=== PATIENT | male | born 1985 | race Caucasian/White ===

== ENCOUNTER 2017-11-19 10:40 | Outpatient (RCR) | payer OTHER, SELFPAY | END 2017-11-25 23:59 | LOC: DC 10:40 | PROVIDERS: Family Provider Family Medicine; PCP Family Medicine; Visit Provider Family Medicine | DX: E11.9 Type 2 diabetes mellitus without complications (principal); Z71.3 Dietary counseling and surveillance | CPT/HCPCS: G0108 ==

== ENCOUNTER → 2018-01-19 12:16 | Outpatient (CLI) | payer OTHER, SELFPAY ==
[2018-01-19 13:20] LABS: Amphetamine Urine VISTA NEGATIVE (<1000 ng/mL); Barbiturate Urine VISTA NEGATIVE (< 200 ng/mL); Benzodiazepine Urine VISTA POSITIVE (< 200 ng/mL); Cocaine Urine VISTA NEGATIVE (< 300 ng/mL); Ecstacy Urine VISTA NEGATIVE (< 500 ng/mL); Methadone Urine VISTA NEGATIVE (< 300 ng/mL); PCP Urine VISTA NEGATIVE (< 25 ng/mL); THC Urine VISTA NEGATIVE (< 50 ng/mL); Vista UDS pH Range 5
== END ==
PROVIDERS: Family Provider Family Medicine; PCP Family Medicine; Visit Provider Anesthesiology Pain Medicine
DX: F11.20 Opioid dependence, uncomplicated (principal)
CPT/HCPCS: 80307

== ENCOUNTER → 2018-07-01 13:25 | Outpatient (CLI) | payer OTHER, SELFPAY ==
[2018-07-01 14:15] LABS: Amphetamine Urine VISTA NEGATIVE (<1000 ng/mL); Barbiturate Urine VISTA NEGATIVE (< 200 ng/mL); Benzodiazepine Urine VISTA POSITIVE (< 200 ng/mL); Cocaine Urine VISTA NEGATIVE (< 300 ng/mL); Ecstacy Urine VISTA NEGATIVE (< 500 ng/mL); Methadone Urine VISTA NEGATIVE (< 300 ng/mL); PCP Urine VISTA NEGATIVE (< 25 ng/mL); THC Urine VISTA POSITIVE (< 50 ng/mL); Vista UDS pH Range 6
== END ==
PROVIDERS: Family Provider Family Medicine; PCP Family Medicine; Referring Provider Anesthesiology Pain Medicine; Visit Provider Anesthesiology Pain Medicine
DX: S48.11 Complete traumatic amputation at level between shoulder and elbow (principal); S49.91XA Unspecified injury of right shoulder and upper arm, initial encounter
CPT/HCPCS: 80307

== ENCOUNTER 2018-12-25 23:31 | Emergency (ER) | payer OTHER, SELFPAY ==
[2018-08-14 09:19] VITALS: BMI 32.2
[2018-12-25 23:31] VITALS: BP 145/81; PULSE 99; RESP 22; TEMP 36.4; O2SAT 97; BMI 30.7
--- NOTE | 2018-12-26 00:38 | CT_ITS ---
STUDY: CTA OF THE ABDOMINAL AORTA AND BILATERAL LOWER EXTREMITIES REASON FOR EXAM: Male, 33 years old. . RADIATION DOSAGE (If Supplied By Facility): CTDIvol = ( 8.39 ) mGy, DLP = ( 2123.13 ) mGycm TECHNIQUE: Axial CT angiography multi-detector data acquisition was obtained from the to the following intravenous administration of 100ML IV Isovue 370. Axial images and MIP images were reconstructed from the axial data set. Post-processing of the angiographic images was performed, with multiplanar reformation and 3D reconstruction. Individualized dose optimization techniques were used for this CT. TECHNICAL QUALITY: Good COMPARISON: None. Descriptors of Narrowing: None (0%) Mild (< 50%) Moderate (50-70%) Severe (70-90%) Subtotal/Total Occlusion (90-100%) Non-Evaluable (technically non-diagnostic FINDINGS: Angiographic findings: Abdominal aorta: No demonstrated narrowing. Celiac and superior mesenteric arteries: No demonstrated narrowing. Inferior mesenteric artery: No demonstrated narrowing. Right renal artery(arteries): No demonstrated narrowing. Left renal artery(arteries): No demonstrated narrowing. Right common iliac artery: No demonstrated narrowing. Right external iliac artery: No demonstrated narrowing. Right internal iliac artery: No demonstrated narrowing. Left common iliac artery: No demonstrated narrowing. Left external iliac artery: No demonstrated narrowing. Left internal iliac artery: No demonstrated narrowing. RIGHT LOWER EXTREMITY Right common femoral artery: No demonstrated narrowing. Right profundus femoris: No demonstrated narrowing. Right superficial femoral: No demonstrated narrowing. Right popliteal artery: No demonstrated narrowing. Right tibioperoneal trunk: No demonstrated narrowing. Right anterior tibial artery: No demonstrated narrowing. Right posterior tibial artery: No demonstrated narrowing. Right peroneal artery: No demonstrated narrowing. LEFT LOWER EXTREMITY Left common femoral artery: No demonstrated narrowing. Left profundus femoris: No demonstrated narrowing. Left superficial femoral: No demonstrated narrowing. Left popliteal artery: No demonstrated narrowing. Left tibioperoneal trunk: No demonstrated narrowing. Left anterior tibial artery: No demonstrated narrowing. Left posterior tibial artery: No demonstrated narrowing. Left peroneal artery: No demonstrated narrowing. Nonangiographic findings: Diffuse homogeneous hypoattenuation of the liver parenchyma. Normal gallbladder. Normal spleen. Normal pancreas. Normal adrenal glands. Normal kidneys.. Normal stomach. Normal small bowel. Mild diverticular disease of the sigmoid colon without localized inflammation. Normal appendix. No free air or free fluid. No significant mesenteric or retroperitoneal adenopathy. IMPRESSION: 1. Normal abdominal aorta and bilateral lower extremity run-off without a hemodynamically significant stenosis. 2. Fatty infiltration of the liver. 3. Sigmoid colonic diverticulosis. Electronically Signed: Ramón Fan MD at 2:12 EDT Tel , Service support , STUDY: CTA CHEST REASON FOR EXAM: Male, 33 years old. Low back pain and chest pain RADIATION DOSAGE (If Supplied By Facility): CTDIvol = ( 8.39 ) mGy, DLP = ( 2123.13 ) mGycm TECHNIQUE: The examination was performed with the intravenous administration of 100ML IV Isovue 370. Post-processing of the angiographic images was performed, with multiplanar reformation and 3D reconstruction. Individualized dose optimization techniques were used for this CT. COMPARISON: None. FINDINGS: Normal enhancement of the main pulmonary artery and right and left pulmonary arteries. Normal enhancement of the bilateral peripheral pulmonary arteries. There is no demonstrated pulmonary embolism. Normal thoracic aorta and visualized great vessels. There is no demonstrated aortic dissection. Normal heart and pericardium. Normal mediastinum. Normal hilar regions. Normal visualized trachea and bronchi. The lungs are well expanded. Mild bilateral dependent atelectasis versus scar formation. Mild to moderate diffuse emphysematous change of the lungs. No pleural effusion or pneumothorax. Normal chest wall structures. Mild to moderate multilevel degenerative change of the spine. CT/CTA Chest W/WO Contrast IMPRESSION: 1. No evidence of acute pulmonary embolism or acute aortic pathology. 2. Mild emphysematous change with bilateral lung base atelectasis versus scar formation. Electronically Signed: Ramón Fan MD at 2:15 EDT Tel , Service support ,
--- NOTE | 2018-12-26 00:38 | CT_ITS ---
STUDY: CTA OF THE ABDOMINAL AORTA AND BILATERAL LOWER EXTREMITIES REASON FOR EXAM: Male, 33 years old. . RADIATION DOSAGE (If Supplied By Facility): CTDIvol = ( 8.39 ) mGy, DLP = ( 2123.13 ) mGycm TECHNIQUE: Axial CT angiography multi-detector data acquisition was obtained from the to the following intravenous administration of 100ML IV Isovue 370. Axial images and MIP images were reconstructed from the axial data set. Post-processing of the angiographic images was performed, with multiplanar reformation and 3D reconstruction. Individualized dose optimization techniques were used for this CT. TECHNICAL QUALITY: Good COMPARISON: None. Descriptors of Narrowing: None (0%) Mild (< 50%) Moderate (50-70%) Severe (70-90%) Subtotal/Total Occlusion (90-100%) Non-Evaluable (technically non-diagnostic FINDINGS: Angiographic findings: Abdominal aorta: No demonstrated narrowing. Celiac and superior mesenteric arteries: No demonstrated narrowing. Inferior mesenteric artery: No demonstrated narrowing. Right renal artery(arteries): No demonstrated narrowing. Left renal artery(arteries): No demonstrated narrowing. Right common iliac artery: No demonstrated narrowing. Right external iliac artery: No demonstrated narrowing. Right internal iliac artery: No demonstrated narrowing. Left common iliac artery: No demonstrated narrowing. Left external iliac artery: No demonstrated narrowing. Left internal iliac artery: No demonstrated narrowing. RIGHT LOWER EXTREMITY Right common femoral artery: No demonstrated narrowing. Right profundus femoris: No demonstrated narrowing. Right superficial femoral: No demonstrated narrowing. Right popliteal artery: No demonstrated narrowing. Right tibioperoneal trunk: No demonstrated narrowing. Right anterior tibial artery: No demonstrated narrowing. Right posterior tibial artery: No demonstrated narrowing. Right peroneal artery: No demonstrated narrowing. LEFT LOWER EXTREMITY Left common femoral artery: No demonstrated narrowing. Left profundus femoris: No demonstrated narrowing. Left superficial femoral: No demonstrated narrowing. Left popliteal artery: No demonstrated narrowing. Left tibioperoneal trunk: No demonstrated narrowing. Left anterior tibial artery: No demonstrated narrowing. Left posterior tibial artery: No demonstrated narrowing. Left peroneal artery: No demonstrated narrowing. Nonangiographic findings: Diffuse homogeneous hypoattenuation of the liver parenchyma. Normal gallbladder. Normal spleen. Normal pancreas. Normal adrenal glands. Normal kidneys.. Normal stomach. Normal small bowel. Mild diverticular disease of the sigmoid colon without localized inflammation. Normal appendix. No free air or free fluid. No significant mesenteric or retroperitoneal adenopathy. IMPRESSION: 1. Normal abdominal aorta and bilateral lower extremity run-off without a hemodynamically significant stenosis. 2. Fatty infiltration of the liver. 3. Sigmoid colonic diverticulosis. Electronically Signed: Ramón Fan MD at 2:12 EDT Tel , Service support , STUDY: CTA CHEST REASON FOR EXAM: Male, 33 years old. Low back pain and chest pain RADIATION DOSAGE (If Supplied By Facility): CTDIvol = ( 8.39 ) mGy, DLP = ( 2123.13 ) mGycm TECHNIQUE: The examination was performed with the intravenous administration of 100ML IV Isovue 370. Post-processing of the angiographic images was performed, with multiplanar reformation and 3D reconstruction. Individualized dose optimization techniques were used for this CT. COMPARISON: None. FINDINGS: Normal enhancement of the main pulmonary artery and right and left pulmonary arteries. Normal enhancement of the bilateral peripheral pulmonary arteries. There is no demonstrated pulmonary embolism. Normal thoracic aorta and visualized great vessels. There is no demonstrated aortic dissection. Normal heart and pericardium. Normal mediastinum. Normal hilar regions. Normal visualized trachea and bronchi. The lungs are well expanded. Mild bilateral dependent atelectasis versus scar formation. Mild to moderate diffuse emphysematous change of the lungs. No pleural effusion or pneumothorax. Normal chest wall structures. Mild to moderate multilevel degenerative change of the spine. CT/CTA Abd w/Runoff W/WO Contrast IMPRESSION: 1. No evidence of acute pulmonary embolism or acute aortic pathology. 2. Mild emphysematous change with bilateral lung base atelectasis versus scar formation. Electronically Signed: Ramón Fan MD at 2:15 EDT Tel , Service support ,
[2018-12-26] MEDS: Ondansetron 4 MG/2 ML Vial IV (00:53)
[2018-12-26] MEDS: Morphine 4 MG/ML Syringe IV (00:53)
[2018-12-26 00:59] LABS: Absolute Lymphocyte Count 2.03 X10^3/ul (0.83-4.51); Basophil# 0.01 X10^3/uL; Basophil% 0.1 % (0-1); Eosinophil# 0.26 X10^3/uL; Eosinophils% 3.8 % (0-5); Hematocrit 41.4 % (40-54); Hemoglobin 14.9 g/dl (13.0-16.5); Lymphocyte # 2.03 X10^3/ul (4.0); Lymphocyte % 29.5 % (19-41); Mean Corpuscular Hgb 29.5 pg (27.0-32.0); Mean Platelet Vol. 11.2 fl (6.2-12.0); Monocyte# 0.55 X10^3/uL; Neutrophil % 58.3 % (47-70); Platelet Count 200 K/mm3 (150-450); RBC Distribution Width SD 37.9 fl (35.1-43.9); Red Blood Count 5.05 M/mm3 (4.6-6.2); White Blood Count 6.9 K/mm3 (4.4-11.0)
[2018-12-26 01:00] LABS: POSITIVE COUNT NO; POSITIVE DIFFERENTIAL NO; POSITIVE MORPHOLOGY NO
[2018-12-26 01:13] LABS: Bacteria 0 SEEN /hpf (None Seen); Mucous, Urine 0 SEEN /hpf (<or=2+); Red Blood Cells-Urine 0 SEEN /hpf (0-5); White Blood Cells 0 SEEN /hpf (0-5)
[2018-12-26 01:14] LABS: Color, Urine Straw (Yellow); Glucose, Dipstick 1000 mg/dl (Normal); Ketone-Dipstick 5 mg/dl (Negative); Leukocyte Esterase-Dipstick Negative /ul (Negative); Nitrite-Dipstick Negative (Negative); Occult Blood-Urine Negative /ul (Negative); Protein-Dipstick Negative (Negative); Specific Gravity, Urine 1.015 (1.002-1.030); Urine Bilirubin Dipstick Negative (Negative); Urine Clarity Clear (Clear); Urine Urobilinogen Normal (Normal); Urine pH 6.5 (5.0 - 8.0)
[2018-12-26 01:14] LABS: Anion Gap 5 (5-15); BUN 10 mg/dL (7-18); BUN/Creat Ratio 10.9 RATIO (10-20); Calcium,Total 7.6 mg/dL (8.5-10.1); Chloride 102 mmol/L (98-107); Creatinine, Serum 0.91 mg/dL (0.70-1.30); EST Glomerular Filtration Rate 101 mL/min (>60); Est Glom Filt Rate - Afr Amer 122 mL/min (>60); Estimated Creatinine Clearance 121.82 ml/min; Glucose 400 mg/dL (74-106); Potassium 3.9 mmol/L (3.5-5.1); Sodium Level 134 mmol/L (136-145)
[2018-12-26 01:20] LABS: Squamous Epithelial Cells - UA 0-5 SEEN /hpf (0-5)
[2018-12-26 01:28] LABS: CPK Total, Creatine Kinase 63 U/L (39-308)
[2018-12-26 02:07] VITALS: BP 127/78; PULSE 67; RESP 16; O2SAT 97
--- NOTE | 2018-12-26 02:37 | ED.DCSUM_ITS ---
- ER Visit Summary Date of Service: 12/26/18 Chief Complaint: Back pain and leg pain History of Present Illness: The patient is a 33 M who presents with back pain. He has a history of prior back pain but never this severe. 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 He has had increased lower back pain since that time particularly on the left. He complains of aching pain radiating into his legs especially on the left. He also reports numbness and tingling. He also reports lower abdominal pain on both sides but more pronounced on the left. No fever chest pain shortness of breath cough. He is diabetic. 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 Emergency Department Course and Treatment: Afebrile vitals unremarkable Moist mucous membranes Heart regular rate and rhythm Lungs are clear Abdomen soft nondistended he has lower abdominal tenderness without guarding without rebound He has bilateral paraspinal lumbar tenderness more so on the left Extremities no edema no calf tenderness I was unable to easily palpate dorsalis pedis pulses he has positive Doppler flow bilaterally however this is strong and triphasic on the right and he only has weak Doppler signal on the left he does have brisk capillary refill normal sensation light touch 5 out of 5 dorsiflexion, plantarflexion, extensor hallucis longus Tests: CBC BMP notable only for glucose 400. Urinalysis normal. CPK normal. CTA of the chest shows no acute pathology. CTA of the abdomen with runoff shows normal aorta and lower extremity runoff. There is mild sigmoid diverticulosis no other acute abdominal process. ED Course: Given patient's report of back pain abdominal pain leg pain and pulse discrepancy this raise concern for aortic dissection. Therefore he was sent for CTAs of the chest abdomen and runoff the of the extremities. No vascular etiology was found. Therefore this is most likely lumbosacral strain and lumbar radiculopathy. He was treated with IV morphine and Zofran here. He is Santhosh on opiates at home. We will add on Mobic. He understands to return for new or worsening symptoms and otherwise to follow-up with his pain management physician. Patient discharged. Treatment Plan: [] Disposition: Discharge Impression: Lumbar sacral strain Lumbar radiculopathy Abdominal pain This note was generated with [employer] dictation software. It may contain incorrect words, spelling, and punctuation that were not noted in review of the chart prior to signing ED Disposition - Plan for ED Patient: Referrals: Abdoulaye Sweet MD [Primary Care Provider] -
--- NOTE | 2018-12-26 03:18 | ED.DEP ---
ED Disposition - Plan for ED Patient: Instructions: ED Sciatica, ED Sprain Strain Lumbar Prescriptions: Meloxicam [Mobic] 15 mg PO DAILY #10 tab Referrals: Abdoulaye Sweet MD [Primary Care Provider] -
[2018-12-26 03:24] VITALS: BP 126/83; PULSE 78; RESP 15; O2SAT 95
== END 2018-12-26 03:25 | disposition home or self-care (01) ==
PROVIDERS: Emergency Provider Emergency Medicine; Family Provider Family Medicine; PCP Family Medicine
DX: S39.012A Strain of muscle, fascia and tendon of lower back, initial encounter (principal); X50.1XXA Overexertion from prolonged static or awkward postures, initial encounter; Y93.89 Activity, other specified; Y92.9 Unspecified place or not applicable; M54.16 Radiculopathy, lumbar region; R10.30 Lower abdominal pain, unspecified; E11.9 Type 2 diabetes mellitus without complications; Z89.202 Acquired absence of left upper limb, unspecified level; Z79.891 Long term (current) use of opiate analgesic; Z79.899 Other long term (current) drug therapy
CPT/HCPCS: 71275; 75635; 80048; 81001; 82550; 85025; 96374; 96375; 99283; Q9967; A4216; J2405

== ENCOUNTER → 2019-01-12 15:28 | Outpatient (CLI) | payer OTHER, SELFPAY ==
[2018-12-25 23:31] VITALS: BMI 30.7
[2019-01-12 17:54] LABS: COTININE Drug Screen Negative (<200 ng/mL)
== END ==
PROVIDERS: Family Provider Family Medicine; PCP Family Medicine
DX: T87.32 Neuroma of amputation stump, left upper extremity (principal); Z72.0 Tobacco use
CPT/HCPCS: 80307

== ENCOUNTER 2019-02-10 13:58 | Emergency (ER) | payer OTHER, SELFPAY ==
[2019-02-10 14:00] VITALS: BP 127/74; PULSE 99; RESP 17; TEMP 36.4; O2SAT 97; BMI 29.2
--- NOTE | 2019-02-10 14:35 | ED.VISSUMM ---
- ER Visit Summary Date of Service: 02/10/19 Chief Complaint: Depression. History of Present Illness: The patient is a 33 M who is depressed and suicidal. 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 He is in quite a bit of pain and cannot manage it. He was seeing [facility], threatened to kill himself in multiple ways. Clean. Physical Examinat Tearful anxious Moist mucous membranes, no obvious facial deformity No C-spine tenderness supple neck. Regular rate and rhythm without any obvious murmurs Clear lungs bilaterally speaking in full sentences without any obvious respiratory distress Abdomen soft and nontender no guarding or rebound Left above the elbow amputation site is clean dry and intact. Skin does not show any obvious rashes or lesions, no trauma. Alert oriented ?3 with no gross focal deficit Emergency Department Course and Treatment: Patient will be medically cleared he will need psychiatric treatment. Disposition: Patient will need transfer to psychiatric facility Impression: Suicidal ideation This note was generated with [email or web address] dictation software. It may contain incorrect words, spelling, and punctuation that were not noted in review of the chart prior to signing ED Disposition - Plan for ED Patient: Referrals: Abdoulaye Sweet MD [Primary Care Provider] -
--- NOTE | 2019-02-10 14:38 | ED.DCSUM_ITS ---
- ER Visit Summary Date of Service: 02/10/19 Chief Complaint: Depression. History of Present Illness: The patient is a 33 M who is depressed and suicidal. 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 He is in quite a bit of pain and cannot ma nage it. He was seeing [facility], threatened to kill himself in multiple ways. Clean. Physical Examinat Tearful anxious Moist mucous membranes, no obvious facial deformity No C-spine tenderness supple neck. Regular rate and rhythm without any obvious murmurs Clear lungs bilaterally speaking in full sentences without any obvious respiratory distress Abdomen soft and nontender no guarding or rebound Left above the elbow amputation site is clean dry and intact. Skin does not show any obvious rashes or lesions, no trauma. Alert oriented ?3 with no gross focal deficit Emergency Department Course and Treatment: Patient will be medically cleared he will need psychiatric treatment. Disposition: Patient will need transfer to psychiatric facility Impression: Suicidal ideation This note was generated with [employer] dictation software. It may contain incorrect words, spelling, and punctuation that were not noted in review of the chart prior to signing ED Disposition - Plan for ED Patient: Referrals: Abdoulaye Sweet MD [Primary Care Provider] -
--- NOTE | 2019-02-10 14:38 | CM.ED ---
SOCIAL WORK CASE DISCUSSED WITH DR. ALBERTS. PATIENT TO BE EVALUATED BY CRISIS ONCE MEDICALLY CLEARED. JONI OCAMPO, VOCAL MUSIC TEACHER, MULTIPLE CUT OFF SAW OPERATOR.
[2019-02-10 14:42] LABS: Absolute Neutrophil Count 7.5 X10^3/uL (2.0-7.7); Basophil# 0.02 X10^3/uL; Basophil% 0.2 % (0-1); Hemoglobin 15.9 g/dl (13.0-16.5); Mean Corp Hgb Conc 35.3 g/gl (32-36); Mean Corpuscular Hgb 28.8 pg (27.0-32.0); Mean Corpuscular Volume 81.5 fL (80-94); Mean Platelet Vol. 11.2 fl (6.2-12.0); Monocyte# 0.63 X10^3/uL; Neutrophil % 71.6 % (47-70); POSITIVE COUNT NO; POSITIVE DIFFERENTIAL NO; POSITIVE MORPHOLOGY NO; Platelet Count 238 K/mm3 (150-450); RBC Distribution Width CV 12.9 % (11.6-14.6); RBC Distribution Width SD 38.2 fl (35.1-43.9); Red Blood Count 5.52 M/mm3 (4.6-6.2); White Blood Count 10.5 K/mm3 (4.4-11.0)
[2019-02-10] MEDS: oxyCODONE 5 MG Tablet 10 MG PO ×2 (14:46→20:32)
[2019-02-10 14:58] LABS: Anion Gap 10 (5-15); BUN 10 mg/dL (7-18); BUN/Creat Ratio 10.1 RATIO (10-20); Calcium,Total 8.8 mg/dL (8.5-10.1); Chloride 103 mmol/L (98-107); Creatinine, Serum 0.99 mg/dL (0.70-1.30); EST Glomerular Filtration Rate 92 mL/min (>60); Est Glom Filt Rate - Afr Amer 111 mL/min (>60); Estimated Creatinine Clearance 111.98 ml/min; Glucose 459 mg/dL (74-106); Sodium Level 137 mmol/L (136-145)
[2019-02-10 15:05] LABS: Amphetamine Urine VISTA NEGATIVE (<1000 ng/mL); Barbiturate Urine VISTA NEGATIVE (< 200 ng/mL); Benzodiazepine Urine VISTA POSITIVE (< 200 ng/mL); Cocaine Urine VISTA NEGATIVE (< 300 ng/mL); Ecstacy Urine VISTA NEGATIVE (< 500 ng/mL); Methadone Urine VISTA NEGATIVE (< 300 ng/mL); PCP Urine VISTA NEGATIVE (< 25 ng/mL); THC Urine VISTA POSITIVE (< 50 ng/mL); Vista UDS pH Range 5
--- NOTE | 2019-02-10 15:39 | NURSING ---
CRISIS HAS CHART OF PATIENT
[2019-02-10 15:48] VITALS: BP 132/70; PULSE 89; RESP 15; O2SAT 98
--- NOTE | 2019-02-10 19:34 | NURSING ---
ACCEPTED TO [facility] BY ANDRES PERKINS DDX UNIT [phone] OPTION 2 REPORT
[2019-02-10] MEDS: ALPRAZolam 0.5 MG Tablet 2 MG PO (20:12)
[2019-02-10 20:19] VITALS: BP 136/70; PULSE 80; RESP 14; O2SAT 98
[2019-02-10 20:29] VITALS: BP 142/102; PULSE 68; RESP 14; O2SAT 99
[2019-02-10] MEDS: tiZANidine HCl 2 MG Tablet 4 MG PO (21:03)
== END 2019-02-10 21:06 ==
PROVIDERS: Emergency Provider Emergency Medicine; Family Provider Family Medicine; PCP Family Medicine
DX: R45.851 Suicidal ideations (principal); F32.9 Major depressive disorder, single episode, unspecified; Z89.222 Acquired absence of left upper limb above elbow
CPT/HCPCS: 36415; 80048; 80307; 80320; 85025; 99285; G0480

== ENCOUNTER → 2019-08-11 10:38 | Outpatient (CLI) | payer OTHER, SELFPAY ==
[2019-07-15 11:58] VITALS: BMI 29.2
[2019-08-11 12:19] LABS: COTININE Drug Screen Negative (<200 ng/mL)
== END ==
PROVIDERS: Family Provider Family Medicine; PCP Family Medicine; Referring Provider Family Medicine; Visit Provider Family Medicine
DX: Z01.818 Encounter for other preprocedural examination (principal); E11.9 Type 2 diabetes mellitus without complications
CPT/HCPCS: 36415; 80307; 83036

== ENCOUNTER 2019-10-16 13:47 | Emergency (ER) | payer OTHER, SELFPAY ==
[2019-07-15 11:58] VITALS: BMI 29.2
[2019-10-16 13:48] VITALS: BP 121/78; PULSE 85; RESP 18; TEMP 36.6; O2SAT 95; BMI 29.2
--- NOTE | 2019-10-16 14:55 | ED.VIS.GEN ---
History of Present Illness <Autumn Escobedo - Last Filed: 10/16/19 14:55> Informant: Patient, Significant Other Onset: Yesterday Context: Sudden Onset Timing: Continuous Quality: redness Location: left arm Current Severity: Mild Maximum Severity: Mild Worsened by: nothing Relieved by: nothing Associated Symptoms: redness Narrative: 34-year-old male presents with concern for an infection to his left arm he had a traumatic amputation 3 years ago he had a revision about 2 months ago and then over the past couple of days he has noticed some redness and drainage. He has not had a fever. No trauma. No vomiting or diarrhea. He denies any other review of systems. Prior similar symptoms: Yes Recent Illness/Hospitalization: No <Rupesh John - Last Filed: 10/16/19 15:24> Chief Complaint: Wound Past Medical History Surgical History: rotator cuff repair, - - fundoplication Smoking Status: Former smoker - Family History Paternal Family History: Reports: Diabetes Maternal Family History: Reports: - - agree with the FH as outlined by WORK DISTRIBUTOR <Moises Escobedoyadielmady - Last Filed: 10/16/19 14:55> Prior records reviewed: Yes Past Medical History: - - Insulin-dependent diabetes, depression Lives: With Family <Rupesh John - Last Filed: 10/16/19 15:24> - Allergies and Home Meds Allergies/Adverse Reactions: Allergies No Known Allergies Allergy (Verified 10/16/19 13:49) Primary Care Physician: Abdoulaye Sweet MD [Primary Care Provider] - 2 Days Review of Systems All systems negative except as indicated General: Denies: Chills, Fever Eyes: Denies: Visual changes - bilaterally, Blurred Vision - bilaterally ENT: Denies: Rhinorrhea, Sore throat Cardiovascular: Denies: Chest pain, Palpitations Respiratory: Denies: Dyspnea, Cough, Sputum Gastrointestinal: Denies: Abdominal pain, Nausea, Vomiting, Diarrhea Genitourinary: Denies: Dysuria, Hematuria, Frequency Musculoskeletal: Denies: Swelling, Extremity Pain Skin: Reports: Abscess, Wounds. Denies: Rash, Abrasions Neurological: Denies: Headache, Weakness, Parasthesia Psych: Reports: Depression. Denies: Anxiety, Suicidal thoughts, Suicidal ideations <Rupesh John - Last Filed: 10/16/19 15:24> Physical Exam Vital Signs/Narrative: Vital Signs Temp Pulse Resp BP Pulse Ox 10/16/19 13:48 97.9 F 85 18 121/78 H 95 <Autumn Escobedo - Last Filed: 10/16/19 14:55> Vital Signs/Narrative: Vital Signs Temp Pulse Resp BP Pulse Ox 10/16/19 13:48 97.9 F 85 18 121/78 H 95 Inital Vital Signs reviewed: Yes General: Well nourished, Well developed Head: Normocephalic, Atraumatic Eyes: Perrl, EOMI ENT: Moist mucous membranes Neck: Supple, Nontender Cardiovascular: Regular rate, Regular rhythm Respiratory: No distress, CTA bilaterally, Chest nontender Abdomen: Soft, Nontender, Nondistended, Normal bowel sounds, No masses Back: Nontender, Normal Inspection Extremities: Nontender. Negative for: Tenderness, Edema, Calf Tenderness Skin: Normal color, No rash, - - Patient has an above the elbow amputation left arm. There are 2 well-healed surgical incisions. He has some redness around the lateral incision. There is some very mild drainage but no focal abscess. There is no lymphatic streaking up his arm. He has a normal-appearing left shoulder. Neurological: Alert, Oriented x3 Psychological: Normal affect <Rupesh John - Last Filed: 10/16/19 15:24> Diagnostic/Tx/Re-eval - Medical Decision Making Patient was seen with Doris agree with history and physical as above Patient is here complaining of redness along the left upper extremity incision line. Has history of amputation above the elbow at [facility] related to trauma, he had a revision of his nerves natural nerves recently and developed some redness around the incision. He has diabetes his diabetes is been stable his other health conditions have all been stable he is doing well at home on exam he has the amputation left upper extremity to the lateral surface the incision is slightly red there is no lymphangitic streaking no fluctuance patient basically is able to move that amputated limb to his baseline he is not having any pain Explained at this time given all the above needs to be started on antibiotics we discussed inpatient versus outpatient management, we discussed him being seen at [facility] they are comfortable discharge home to follow-up with [facility] surgical team tomorrow or Thursday and return for change in symptoms, please see the chart for full details <Autumn Escobedo - Last Filed: 10/16/19 14:55> ED Disposition <Autumn Escobedo - Last Filed: 10/16/19 14:55> <Rupesh John - Last Filed: 10/16/19 15:24> - Plan for ED Patient: Disposition: Home or Assisted Living Diagnosis: 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
[2019-10-16] MEDS: Cephalexin 250 MG Capsule 500 MG PO (15:19)
[2019-10-16] MEDS: Doxycycline 100 MG CAPSULE PO (15:19)
[2019-10-16 15:21] VITALS: BP 151/90; PULSE 80; RESP 16; O2SAT 95
== END 2019-10-16 15:22 | disposition home or self-care (01) ==
PROVIDERS: Emergency Provider Physician Assistant Medical; PCP Family Medicine
DX: T87.42 Infection of amputation stump, left upper extremity (principal); L03.114 Cellulitis of left upper limb; E11.9 Type 2 diabetes mellitus without complications; F32.9 Major depressive disorder, single episode, unspecified; Z79.4 Long term (current) use of insulin; Z79.899 Other long term (current) drug therapy; Z87.891 Personal history of nicotine dependence; Z89.222 Acquired absence of left upper limb above elbow
CPT/HCPCS: 99283

== ENCOUNTER → 2020-02-02 14:15 | Outpatient (CLI) | payer OTHER, SELFPAY ==
[2020-02-02 18:36] LABS: ALB/GLOB Ratio 1.1 RATIO (0.9-2.4); AST(SGOT) 12 U/L (15-37); Alanine Aminotransfer ALT/SGPT 27 U/L (16-61); Albumin, Serum 3.9 g/dL (3.2-5.0); Alkaline Phosphatase 158 U/L (45-117); Anion Gap 10 (5-15); BUN 15 mg/dL (7-18); BUN/Creat Ratio 18.7 RATIO (10-20); Calcium,Total 8.9 mg/dL (8.5-10.1); Chloride 105 mmol/L (98-107); Cholesterol 213 mg/dL (200); EST Glomerular Filtration Rate 116 mL/min (>60); Est Glom Filt Rate - Afr Amer 141 mL/min (>60); Globulin 3.6 g/dL (2.2-4.2); Glucose 341 mg/dL (74-106); High Density Lipoprotein 23 mg/dL; Potassium 3.6 mmol/L (3.5-5.1); Protein, Total 7.5 g/dL (6.4-8.2); Sodium Level 134 mmol/L (136-145); Thyroid Stim Hormone (TSH) 1.08 uIU/mL (0.358-3.74); Triglycerides 624 mg/dL
== END ==
PROVIDERS: PCP Family Medicine; Visit Provider Family Medicine
DX: E11.9 Type 2 diabetes mellitus without complications (principal)
CPT/HCPCS: 36415; 80053; 80061; 84403; 84443

== ENCOUNTER 2020-03-03 16:04 | Emergency (ER) | payer OTHER, SELFPAY ==
[2020-03-03 16:06] VITALS: BP 130/87; PULSE 89; RESP 16; TEMP 36.3; O2SAT 96; BMI 27.8
--- NOTE | 2020-03-03 16:22 | ED.VIS.GEN ---
History of Present Illness Informant: Patient Onset: Yesterday Context: Gradual Onset Timing: Continuous Quality: sharp Location: left arm Current Severity: Severe Maximum Severity: Severe Worsened by: nothing Relieved by: nothing Associated Symptoms: denies Narrative: 34-year-old male presents because his buprenorphine patch fell off yesterday because of coronavirus unable to get a refill until Thursday, today is Thursday. 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 He has no other review of systems at this time Prior similar symptoms: Yes Recent Illness/Hospitalization: No <Rupesh John - Last Filed: 03/03/20 16:22> <Autumn Escobedo - Last Filed: 03/03/20 16:43> Chief Complaint: Upper Extremity Injury Past Medical History Prior records reviewed: Yes Past Medical History: - - Chronic pain Surgical History: rotator cuff repair, - - fundoplication, traumatic amputation and multiple subsequent surgeries left arm Smoking Status: Former smoker - Family History Paternal Family History: Reports: Diabetes Maternal Family History: Reports: - - agree with the FH as outlined by FOOD SAFETY TECHNICIAN <Rupesh John - Last Filed: 03/03/20 16:22> <Autumn Escobedo - Last Filed: 03/03/20 16:43> - Allergies and Home Meds Allergies/Adverse Reactions: Allergies adhesive tape Allergy (Verified 03/03/20 16:06) Rash Primary Care Physician: Abdoulaye Sweet MD [Primary Care Provider] - Review of Systems All systems negative except as indicated General: Denies: Chills, Fever, Sweats Eyes: Denies: Visual changes - bilaterally, Diplopia ENT: Denies: Rhinorrhea, Sore throat Cardiovascular: Denies: Chest pain, Palpitations Respiratory: Denies: Dyspnea, Cough, Dyspnea on exertion Gastrointestinal: Denies: Abdominal pain, Nausea, Vomiting, Diarrhea, Melena, Hematochezia Genitourinary: Denies: Dysuria, Hematuria, Frequency Musculoskeletal: Reports: Extremity Pain. Denies: Back pain, Swelling Skin: Denies: Rash, Wounds Neurological: Denies: Headache, Weakness, Numbness <Rupesh John - Last Filed: 03/03/20 16:22> Physical Exam Vital Signs/Narrative: Vital Signs Temp Pulse Resp BP Pulse Ox 03/03/20 16:06 97.4 F L 89 16 130/87 H 96 Inital Vital Signs reviewed: Yes General: Well nourished, Well developed, No Acute Distress Head: Normocephalic, Atraumatic Eyes: Perrl, EOMI ENT: Moist mucous membranes, No rhinorrhea Neck: Supple, Nontender Cardiovascular: Regular rate, Regular rhythm, No murmurs Respiratory: No distress, CTA bilaterally, Chest nontender Abdomen: Soft, Nontender, Nondistended, Normal bowel sounds Back: Nontender, Normal Inspection Extremities: Nontender, No edema, - - Amputation above the left arm demonstrates normal inspection Skin: Normal color, No rash Neurological: Alert, Oriented x3, Cranial nerves II-XII grossly intact, Normal Strength, Normal Sensation Psychological: Normal affect, Normal Mood <Rupesh John - Last Filed: 03/03/20 16:22> Vital Signs/Narrative: Vital Signs Temp Pulse Resp BP Pulse Ox 03/03/20 16:06 97.4 F L 89 16 130/87 H 96 <Autumn Escobedo - Last Filed: 03/03/20 16:43> Diagnostic/Tx/Re-eval - Medical Decision Making [facility] report on the patient shows he is in pain management on the buprenorphine patches prescribed by ANURADHA Florez pain management. He is also on medical marijuana as well. We will give him prescription for 1 patch until he can get into see his doctor on Thursday as scheduled as he states he has contacted them multiple times and has not gotten a call back. <Rupesh John - Last Filed: 03/03/20 16:22> - Medical Decision Making The patient was seen with Rupesh agree with history and physical as above, patient has traumatic amputation left arm he has a buprenorphine patch that fell off due to COVID-19 difficulty seeing his pain management physicians could not get refill, on exam the upper extremity exams are unremarkable baseline for him showing the prior amputation no infection this is a chronic state for him at this time given all the above and his difficulty seeing his outpatient providers will provide him 1 refill see the chart for full details <Autumn Escobedo - Last Filed: 06/06/20 16:43> ED Disposition <Rupesh John - Last Filed: 03/03/20 16:22> <Autunm Escobedo - Last Filed: 03/03/20 16:43> - Plan for ED Patient: Disposition: Home or Assisted Living Diagnosis: 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 QWEEK #1 patch.tdwk Prescription Printed Referrals: Abdoulaye Sweet MD [Primary Care Provider] -
== END 2020-03-03 16:55 | disposition home or self-care (01) ==
LOC: ED 16:45
PROVIDERS: Emergency Provider Physician Assistant Medical; PCP Family Medicine
DX: Z89.222 Acquired absence of left upper limb above elbow (principal); M79.2 Neuralgia and neuritis, unspecified; G89.29 Other chronic pain; Z87.891 Personal history of nicotine dependence
CPT/HCPCS: 99282

== ENCOUNTER → 2020-08-15 15:58 | Outpatient (CLI) | payer OTHER, SELFPAY | PROVIDERS: PCP Family Medicine; Visit Provider Family Medicine | DX: Z20.828 Contact with and (suspected) exposure to other viral communicable diseases (principal) | CPT/HCPCS: 87635; U0003 ==

== ENCOUNTER → 2020-10-04 11:47 | Outpatient (CLI) | payer OTHER, SELFPAY ==
[2020-10-04 15:28] LABS: ALB/GLOB Ratio 1.3 RATIO (0.9-2.4); AST(SGOT) 14 U/L (15-37); Alanine Aminotransfer ALT/SGPT 35 U/L (16-61); Albumin, Serum 4.3 g/dL (3.2-5.0); Alkaline Phosphatase 139 U/L (45-117); Anion Gap 8 (5-15); BUN 10 mg/dL (7-18); BUN/Creat Ratio 11.2 RATIO (10-20); Calcium,Total 8.8 mg/dL (8.5-10.1); Chloride 107 mmol/L (98-107); Cholesterol 219 mg/dL (200); Creatinine, Serum 0.89 mg/dL (0.70-1.30); EST Glomerular Filtration Rate 102 mL/min (>60); Est Glom Filt Rate - Afr Amer 124 mL/min (>60); Globulin 3.3 g/dL (2.2-4.2); Glucose 257 mg/dL (74-106); High Density Lipoprotein 29 mg/dL; Potassium 3.9 mmol/L (3.5-5.1); Protein, Total 7.6 g/dL (6.4-8.2); Sodium Level 137 mmol/L (136-145); Triglycerides 373 mg/dL; Very Low Density Lipoprotein 75 mg/dL (5-40)
== END ==
PROVIDERS: PCP Family Medicine; Referring Provider Family Medicine; Visit Provider Family Medicine
DX: E11.9 Type 2 diabetes mellitus without complications (principal)
CPT/HCPCS: 36415; 80053; 80061

== ENCOUNTER 2020-10-08 14:30 | Outpatient (RCR) | payer OTHER, SELFPAY ==
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
--- NOTE | 2020-07-05 15:38 | HP.OTREVAL ---
CHRISTINE SALGUERO, It has been my pleasure to treat EARL NAZARIO over the last 18 visits for left above elbow amputation. Please see the progress note below for an update on the occupational therapy plan of care! Subjective: Went to [facility] and he has his name on the schedule for a vist next Thursday for an initial consult, paperwork to go through. Pt arrived to OT on time but upset that his doctor (Dr. Torres) has reduced his baclofin from 20mg to 10 mg. He was very unhappy with that and was speaking about stopping OT if he could not get the pain medication back to his prior amount. pt has not recived any info on his prosthetic arm. pt communicated frustration with and pain - i dont understand why they cant do more, or let me deal with pain while using prosthetic arm. Objective/Function: pt jose armando more activity - working with stregthening with ilsa system for left shoulder 15#-5#. pt painful throughout ex. pt has made gains with strength -working through pain during therapy session. pt would benefit from continue services 2x week for 6 week to continue to improve strength to prep pt for prosthetic limb. Plan Frequency: 2-3x /Week Duration: 6 Weeks Plan: pt continues to have pain with left AEA- pt having difficulty with pain mtg and feels a return to surgoen to see if there is something they can do or just move forward with limb to learn to use prosthetic limb. OT will cont with desensitization and PRE of AEA Goals - Goals Patient Goals: Decrease Pain Goal:: Pt will demo a increase in left shoulder MMT to 4+/5 by d/c to work towards use of artificial arm in future. Goal:: pt will reports pain no greater than 3/10 with use of Left UE as assistive devices by d/c Goal:: pt will demo understanding of desensitization by end of 4th visit to increase jose armando of artivicial limb. Anticipated Interventions Anticipated Interventions: Strengthening, Scar Care, Triggerpoint Release, Desensitization, Sensory Retraining, Modalities, Orthoses, Ergonomic Education, Education re assistive Equipment Please do not hesitate to contact me at [phone] by phone or if you have questions or concerns regarding this new plan of care! Sincerely, Lona Balbuena, OTR/L, CHT
--- NOTE | 2020-11-13 11:27 | OT ---
pt has benefited from use of paraffin in our clinic to decrease pain and increase soft tissue elasticity. Pt has reported inital pain at 05/07 and following paraffin bath use 12/05. Therapy has encouraged pt. to get a home unit where he has more access. Pt receptive.
--- NOTE | 2020-12-12 09:11 | HP.OT.NRP ---
EARL NAZARIO was seen in my office for initial evaluation on 05/02/20. The following Plan of Care was established for this patient: Initial Frequency: 2-3x /Week Initial Duration: 6 Weeks Plan: cont POC as tolerated in gym Anticipated Interventions: Strengthening, Scar Care, Triggerpoint Release, Desensitization, Sensory Retraining, Modalities, Orthoses, Ergonomic Education, Education re assistive Equipment This patient was last seen in our office 10/08/20. Pertinent comments regarding their Occupational therapy will appear below: pt D/c at this time due to c9 date ending- pt also missed apts due to cardiac issue and placed in hospital. At this point I will be discontinuing this patient from occupational therapy. I would be happy to see this patient again in the future if found appropriate by the physician. Thank you! Lona Balbuena, OTR/L, CHT
== END 2020-10-08 19:00 | disposition home or self-care (01) ==
LOC: OT 14:30
PROVIDERS: PCP Family Medicine
DX: S48.11 Complete traumatic amputation at level between shoulder and elbow (principal)
CPT/HCPCS: 97110; 97140; 97166; 97530

== ENCOUNTER 2020-10-11 08:30 | Inpatient (IN) | payer OTHER, SELFPAY ==
[2020-10-11] VITALS (16 sets, daily range): BP systolic 131–168; BP diastolic 77–100; PULSE 48–89; RESP 12–26; TEMP 36.4–36.8; O2SAT 95–99; BMI 30.7; BMI 29.0
--- NOTE | 2020-10-11 08:36 | NURSING ---
NO OLD EKGS
--- NOTE | 2020-10-11 08:38 | ED.RN ---
pt reports my dr took me off all my meds a lot of albertina meds
--- NOTE | 2020-10-11 08:47 | EKG12_ITS ---
Test Reason : Blood Pressure : / mmHG Vent. Rate : 054 BPM Atrial Rate : 054 BPM P-R Int : 190 ms QRS Dur : 112 ms QT Int : 454 ms P-R-T Axes : 039 011 033 degrees QTc Int : 430 ms Sinus bradycardia with sinus arrhythmia Otherwise normal ECG No previous ECGs available Confirmed by GIBSON HILARIO, LIBIA ([id number]), image editor BOB YUSUF ([id number]) on 10/15/2020 11:16:38 AM Referred By: GORDO Confirmed By:ELEAZAR ARREAGA MD
[2020-10-11] MEDS: Ondansetron 4 MG/2 ML Vial IV (09:01)
[2020-10-11] MEDS: hydrOXYzine PAM 25 MG Capsule 50 MG PO ×3 (09:02→22:53)
--- NOTE | 2020-10-11 09:07 | ED.DCSUM_ITS ---
History of Present Illness Chief Complaint: Chest Pain Narrative: Patient presenting for opiate withdrawal. Patient has a underlying history of diabetes, and also has a history of a traumatic left arm amputation for which she was on chronic opiates for the last 3 to 4 years. Patient states that he was under the care of a pain management doctor, and recently his pain management doctor started to try injections. Patient tells me that when the injections were working, he requested to continue his opiate medications and his pain management physician abruptly halted his opiate pain management. Patient states that for the last 8 days he has been without his chronic opiates. He is having generalized pain, serious anxiety. He tells me that he was trying to deal with this at home, but did not like being like that in front of his kids and now is presenting to the emergency department requesting detox from opiates. Past Medical History - Allergies and Home Meds Allergies/Adverse Reactions: Allergies adhesive tape Allergy (Verified 10/11/20 08:35) Rash Prior records reviewed: Yes Past Medical History: - - Diabetes, chronic pain Surgical History: rotator cuff repair, - - fundoplication, traumatic amputation and multiple subsequent surgeries left arm Smoking Status: Current every day smoker - Family History Paternal Family History: Reports: Diabetes Maternal Family History: Reports: - - agree with the FH as outlined by HAND GLASS CUTTER Review of Systems All systems negative except as indicated General: Reports: Malaise Eyes: Denies: Visual changes - bilaterally, Diplopia ENT: Denies: Rhinorrhea, Sore throat Cardiovascular: Denies: Chest pain, Palpitations Respiratory: Denies: Dyspnea, Cough, Dyspnea on exertion Gastrointestinal: Reports: Nausea Genitourinary: Denies: Dysuria, Hematuria, Frequency Musculoskeletal: Reports: Myalgias Skin: Denies: Rash, Wounds Neurological: Denies: Headache, Weakness, Numbness Psych: Reports: Anxiety Physical Exam Vital Signs/Narrative: Vital Signs Temp Pulse Resp BP Pulse Ox 10/11/20 08:33 67 16 152/100 H 10/11/20 08:31 97.6 F L 85 26 H 96 Inital Vital Signs reviewed: Yes General: Well nourished, Well developed, Acute Distress Head: Normocephalic, Atraumatic Eyes: Perrl, EOMI ENT: Moist mucous membranes, No rhinorrhea Neck: Supple, Nontender Cardiovascular: Regular rate, Regular rhythm, No murmurs Respiratory: No distress, CTA bilaterally, Chest nontender Abdomen: Soft, Nontender, Nondistended, Normal bowel sounds Back: Nontender, Normal Inspection Extremities: Nontender, No edema, - - Traumatic above the elbow amputation of the left arm Skin: Normal color, No rash Neurological: Alert, Oriented x3, Cranial nerves II-XII grossly intact, Normal Strength, Normal Sensation Psychological: Tearful Diagnostic/Tx/Re-eval - EKG Initial EKG Interpretation: - - Sinus bradycardia with a rate of 59, isoelectric ST segments normal T waves normal ID and QTc intervals. Sinus arrhythmia is noted. - Medical Decision Making Patient presented secondary to symptoms of opiate withdrawal. He was complaining of chest pain, but generalized pain. An EKG was obtained and showed no ischemic changes. Patient was noted to have a leukocytosis of 14. Chemistry panel shows the patient to have hyperglycemia in the 300s. Patient's alcohol was negative, his tox screen was positive for cannabis for which she is prescribed for chronic pain in the past. Patient's troponin was found to be elevated to a positive level of 0.5. Upon recognition of this, CT angiogram of the chest was ordered as the patient does report dyspnea, no history of heart disease. Patient was given aspirin and Lovenox. CT angiogram of the chest did not reveal pulmonary embolism. Patient at this point requires admission secondary to capital NSTEMI. Patient also will be treated for opiate withdrawal . Patient will be admitted under the hospitalist. - Critical Care Time Critical care time (excluding procedures): 30-74 minutes ED Disposition - Plan for ED Patient: Disposition: Acute Care Hospital [facility] Diagnosis: NSTEMI (non-ST elevated myocardial infarction), Opiate withdrawal
[2020-10-11 09:14] LABS: Absolute Lymphocyte Count 2.82 X10^3/uL (0.83-4.51); Absolute Neutrophil Count 10.3 X10^3/uL (2.0-7.7); Basophil# 0.04 X10^3/uL; Basophil% 0.3 % (0-1); Eosinophils% 1.4 % (0-5); Hematocrit 47.9 % (40-54); Hemoglobin 16.9 g/dL (13.0-16.5); Lymphocyte # 2.82 X10^3/ul (4.0); Lymphocyte % 19.6 % (19-41); Mean Corp Hgb Conc 35.3 g/dL (32-36); Mean Corpuscular Hgb 28.5 pg (27.0-32.0); Mean Corpuscular Volume 80.8 fL (80-94); Monocyte# 0.94 X10^3/uL; Monocyte% 6.5 % (0-10); NRBC Flagged by Analyzer 0 % (0-5); Neutrophil # 10.31 X10^3/uL (2.7-7.7); Neutrophil % 71.9 % (47-70); Platelet Count 270 K/mm3 (150-450); RBC Distribution Width CV 12.3 % (11.6-14.6); RBC Distribution Width SD 36.2 fl (35.1-43.9); Red Blood Count 5.93 M/mm3 (4.6-6.2); White Blood Count 14.4 K/mm3 (4.4-11.0)
[2020-10-11] MEDS: Gabapentin 300 MG Capsule PO ×2 (09:38→16:04)
--- NOTE | 2020-10-11 09:38 | ED.RN ---
pt reports feeling slightly better. still restless.
[2020-10-11 09:48] LABS: Alcohol, Blood (Medical)-Serum < 3.0 mg/dL
[2020-10-11 09:49] LABS: ALB/GLOB Ratio 1.1 RATIO (0.9-2.4); AST(SGOT) 22 U/L (15-37); Alanine Aminotransfer ALT/SGPT 35 U/L (16-61); Alkaline Phosphatase 140 U/L (45-117); Anion Gap 7 (5-15); BUN 11 mg/dL (7-18); BUN/Creat Ratio 11.9 RATIO (10-20); Calcium,Total 8.7 mg/dL (8.5-10.1); Chloride 103 mmol/L (98-107); Creatinine, Serum 0.93 mg/dL (0.70-1.30); EST Glomerular Filtration Rate 98 mL/min (>60); Est Glom Filt Rate - Afr Amer 118 mL/min (>60); Estimated Creatinine Clearance 116.95 ml/min; Globulin 3.5 g/dL (2.2-4.2); Glucose 376 mg/dL (74-106); Potassium 4.2 mmol/L (3.5-5.1); Protein, Total 7.5 g/dL (6.4-8.2); Sodium Level 133 mmol/L (136-145)
[2020-10-11 10:03] LABS: Amphetamine Urine VISTA NEGATIVE (<1000 ng/mL); Barbiturate Urine VISTA NEGATIVE (< 200 ng/mL); Benzodiazepine Urine VISTA NEGATIVE (< 200 ng/mL); Cocaine Urine VISTA NEGATIVE (< 300 ng/mL); Ecstacy Urine VISTA NEGATIVE (< 500 ng/mL); Methadone Urine VISTA NEGATIVE (< 300 ng/mL); PCP Urine VISTA NEGATIVE (< 25 ng/mL); THC Urine VISTA POSITIVE (< 50 ng/mL); Vista UDS pH Range 5
--- NOTE | 2020-10-11 10:18 | CT_ITS ---
STUDY: CTA CHEST REASON FOR EXAM: Male, 35 years old. Chest pain, opoid withdrawal, smoker. Hx left upper extremity amputation. RADIATION DOSAGE (If Supplied By Facility): CTDIvol = ( 12.75 ) mGy, DLP = ( 502.10 ) mGycm TECHNIQUE: The examination was performed with the intravenous administration of 100mL [id number]. Post-processing of the angiographic images was performed, with multiplanar reformation and 3D reconstruction. Individualized dose optimization techniques were used for this CT. COMPARISON: Comparison is made with prior examination dated 12/26/2018. FINDINGS: Normal enhancement of the main pulmonary artery and right and left pulmonary arteries. Normal enhancement of the bilateral peripheral pulmonary arteries. There is no demonstrated pulmonary embolism. Normal thoracic aorta and visualized great vessels. There is no demonstrated aortic dissection. Normal heart and pericardium. Normal mediastinum. Normal hilar regions. Normal visualized trachea and bronchi. The lungs are well expanded. Minimal increased markings in the lateral aspect of the lingular segment of the left upper lobe suggestive of possible atelectasis. Normal pleura. Normal chest wall structures. Normal osseous structures. Normal visualized upper abdomen. CT/CTA Chest W/WO Contrast IMPRESSION: No evidence of pulmonary embolism. Mild increased markings in the lateral aspect of the lingular segment of the left upper lobe suggestive of mild atelectasis. Electronically Signed: Anselmo Monique, at 11:01 EST , Service support ,
[2020-10-11] MEDS: Aspirin 81 MG TAB.CHEW 324 MG PO (10:22)
[2020-10-11] MEDS: Enoxaparin 100 MG/ML Syringe SC (10:22)
--- NOTE | 2020-10-11 10:51 | NURSING ---
GILSON JERONIMO NSTEMI, OPIATE WITHDRAWAL
[2020-10-11] MEDS: Nitroglycerin SL (ED/IMG/CATH) 0.4 MG TABLET SUBLINGUAL ×3 (10:54→11:07)
--- NOTE | 2020-10-11 11:43 | EKG12_ITS ---
Test Reason : CP Blood Pressure : / mmHG Vent. Rate : 059 BPM Atrial Rate : 059 BPM P-R Int : 166 ms QRS Dur : 114 ms QT Int : 432 ms P-R-T Axes : 050 010 038 degrees QTc Int : 427 ms Sinus bradycardia with marked sinus arrhythmia Otherwise normal ECG Confirmed by AMADA HILARIO, KOTA ([id number]), slot editor STEPHEN JACKSON ([id number]) on 10/17/2020 6:13:30 AM Referred By: MR Confirmed By:KOTA YBARRA MD
[2020-10-11 12:36] LABS: Bedside Glucose 293 mg/dL (70-110)
[2020-10-11] MEDS: Insulin Lispro 100 UNIT/ML INSULN.PEN SC ×3 (12:37→22:47)
[2020-10-11] MEDS: Insulin Lispro 100 UNIT/ML INSULN.PEN 6 UNIT SC ×2 (12:38→16:47)
[2020-10-11] MEDS: Lactated Ringers 1,000 ML 50 ML IV (12:39)
[2020-10-11 13:05] LABS: Hemoglobin A1c 8.2 % (3.8-5.6)
--- NOTE | 2020-10-11 13:37 | PCM.HP.STD ---
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 Whaley is a 35 year old WM who suffered from a traumatic left upper extremity amputation in a work accident in 2017 and has been undergoing pain management at [facility] pain management presented to the emergency department at [facility] [place] on 10/11/2020 complaining of chest pain and requesting opiate detox. He is also has a past medical history of diabetes which he has been treating with diet alone and tobacco abuse. He reported that until recently he was under the care of a pain management doctor and he had refused some injections and the patient was not comfortable with that as they were not working and he requested to continue his opiate medications and his pain management was abruptly halted. Per discussion with his pain management physicians he was discharged from the practice on 07/31/2020. The patient states that he takes 3 Percocets a day with his last dose being approximately 7 to 8 days ago but he had been on chronic opiates for about 3 years now, and he is experiencing generalized pain anxiety and nausea. He also complained of chest pain in the emergency department and chest pain work-up was initiated. His vital signs were stable. His CBC showed a mildly elevated white count and hemoglobin. His BMP showed mild hyponatremia but blood sugar was greater than 350. A troponin was obtained and was 0.517. His EKG showed normal sinus rhythm with no acute ST-T wave changes. CTA was done in the emergency department and showed no pulmonary embolism and mild increased interstitial markings suggestive of atelectasis. He was dosed with therapeutic Lovenox prior to the CTA being done in the emergency department with 100 mg 1 time and given full dose aspirin x1. He was also treated with nitroglycerin. He will be admitted for PCI to PCU for NSTEMI work-up and for opiate detox. Of note, I did discuss his case with [facility] and he was discharged from the practice on 07/31/2020 for inappropriate behavior. He apparently became violent with the staff there and was noncompliant with medications and that he was running out of his medications early. His last prescription was for opiates was Percocet 01/28/2025 written on 08/28/2020 for 90 tablets. 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 (Chronic) Tobacco abuse (Chronic) Anxiety (Chronic) Neuropathic pain (Chronic) Allergies adhesive tape Allergy (Verified 10/11/20 08:35) Rash Home Medications: Ambulatory Orders Medication Instructions Recorded Pregabalin [Lyrica] 150 mg PO BID 06/09/17 Baclofen 10 mg PO Q12H 10/11/20 Hydroxyzine HCl 50 mg PO BID PRN 10/11/20 Surgical History: Surgical History (Last Reviewed 07/15/19 @ 11:58 by Shelbi Chew) Amputation of arm, left Z89.202 Rotator cuff arthropathy M12.819 Surgical History: rotator cuff repair, - - fundoplication, traumatic amputation and multiple subsequent surgeries left arm Psychiatric History: No pertinent psych hx Smoking Status: Current every day smoker - *Family History Paternal History Items: Diabetes Maternal History Items: - - agree with the FH as outlined by TRANSPORT DRIVER Review of Systems Constitutional: Reports: Chills, Malaise, Weakness, Fatigue. Denies: Anorexia, Fever, Night Sweats, Weight Change Eyes: Denies: Blurred vision, Cataracts, Conjunctivae Inflammation, Double vision, Drainage, Eyelid Inflammation, Pain, Redness, Vision Change HEENT: Denies: Difficulty Hearing, Head Aches, Nasal bleeding, Post Nasal Drip, Sinus Congestion, Sinus Drainage, Sore Throat, Visual Changes Cardiovascular: Reports: Chest Pain, Chest Pressure, Chest Tightness, Heaviness. Denies: Claudication, Edema, Light Headedness, Orthopnea, Palpitations, Paroxysmal Noc. Dyspnea, Syncope Respiratory: Reports: Shortness of Breath, Shortness of breath upon exertion. Denies: Cough, Hemoptysis, Pleuritic Pain, Shortness of breath at rest, Sputum production, Wheezing Gastrointestinal: Reports: Nausea. Denies: Abdominal Pain, Constipation, Diarrhea, Dyspepsia, Hematemesis, Hematochezia, Melena, Vomiting Genitourinary: Denies: Dysuria, Frequency, Hematuria, Hesitancy, Incontinence, Nocturia, Retention, Urgency Musculoskeletal: Reports: Arm Pain - Left-sided. Denies: Back Pain, Joint Pain, Joint stiffness, Joint swelling, Joint Tenderness, Muscle pain, Neck Pain Skin: Denies: Dryness, Jaundice, Lesions, Pruritis, Rash, Skin Changes, Wounds Neurological: Reports: Numbness - Left upper extremity. Denies: Balance problems, Blurred vision, Double vision, Change in Speech, Slurred speech, Confusion, Difficulty swallowing, Focal weakness, Headaches, Incoordination, Tingling, Tremor, Seizures Psychiatric: Reports: Anxiety. Denies: Depression Endocrine: Denies: Change in Body Habitus, Heat/ Cold Intolerance, Polydipsia, Polyuria Hematologic/ Lymphatic: Denies: Adenopathy, Anemia, Easy Bruising, Easy Bleeding, Petechiae, Purpura VTE Information - Inpt Only VTE Present on Admission: No VTE Mechan Device Prophylaxis: None VTE Pharm Prophylaxis ordered?: Yes Patient Problems: Active and Suspected Problems (Last Reviewed 07/15/19 @ 11:58 by Shelbi Chew) NSTEMI (non-ST elevated myocardial infarction) (Acute) Opiate withdrawal (Acute) - Physical Exam Vitals/I&O's: Vital Signs Temp Pulse Resp BP Pulse Ox 98.2 F 69 12 133/84 H 99 10/11/20 12:12 10/11/20 12:12 10/11/20 12:12 10/11/20 12:12 10/11/20 12:12 Oxygen Delivery Method Room Air Weight: 94.4 kg Body Mass Index (BMI) 29.0 Intake and Output for Last 24 Hours 10/09/20 10/10/20 10/11/20 23:59 23:59 23:59 Intake Total 120 / 120 Balance 120 / 120 General: Alert, Oriented x3, Cooperative, No apparent distress, Well developed, Well nourished, - - White middle-aged male sitting up in bed, appears very anxious, but not overtly uncomfortable HEENT: Atraumatic, PERRLA, EOMI, Normocephalic, EAC Clear Oral: Moist Mucosa, No Gingival or Mucosal Lesions/ Ulcerations, - - Poor dentition Neck: Supple, No JVD, Trachea Midline, Thyroid Normal Size and Texture Lungs: Clear to auscultation, Normal air movement, No rhonchi, No wheeze, No rales Cardiovascular: Regular rate, Regular Rhythm, Normal S1, Normal S2, No murmurs, No Ectopic Activity, No rub noted, No Gallop Abdomen: Bowel Sounds Present, Soft, Non Tender, Non-Distended, No hernias noted Extremities: No clubbing, No cyanosis, No edema, Capillary Refill Less than 3 Seconds, Peripheral Pulses Normal Skin: No rashes, No breakdown Musculoskeletal: No Tenderness to Palpation of Joints or Extremities, Muscle Wasting - Left upper extremity and left chest Lymphatic: No Cervical, Supraclavicular, or Inguinal Adenopathy Neurological: Cranial nerves II-XII grossly intact, Neuro grossly intact, Muscle tone normal, Sensory exam intact to light touch and pain - Except for left upper extremity, Coordination normal Psych/Mental Status: Appropriate, Anxious, - - Alert and oriented x4, very pleasant, tearful at times Laboratory Results 10/11/20 08:55: WBC 14.4 H, RBC 5.93, Hgb 16.9 H, Hct 47.9, MCV 80.8, MCH 28.5, MCHC 35.3, RDW Std Deviation 36.2, RDW Coeff of Scooter 12.3, Plt Count 270, MPV 11.0, Immature Gran % (Auto) 0.300, Neut % (Auto) 71.9 H, Lymph % (Auto) 19.6, [place] % (Auto) 6.5, Eos % (Auto) 1.4, Baso % (Auto) 0.3, Absolute Neuts (auto) 10.3 H, Absolute Lymphs (auto) 2.82, Nucleated RBC % 0 10/11/20 08:55: Sodium 133 L, Potassium 4.2, Chloride 103, Carbon Dioxide 23.0, Anion Gap 7, BUN 11, Creatinine 0.93, Estim Creat Clear Calc 116.95, Est GFR (MDRD) Af Amer 118, Est GFR (MDRD) Non-Af 98, BUN/Creatinine Ratio 11.9, Glucose 376 H, Calcium 8.7, Total Bilirubin 0.40, AST 22, ALT 35, Alkaline Phosphatase 140 H, Total Protein 7.5, Albumin 4.0, Globulin 3.5, Albumin/Globulin Ratio 1.1 10/11/20 08:55: Ethyl Alcohol < 3.0 10/11/20 08:55: Troponin I 0.517 H 10/11/20 08:55: Hemoglobin A1c 8.2 H 10/11/20 09:40: Urine Opiates Screen NEGATIVE, Urine Methadone Screen NEGATIVE, Ur Barbiturates Screen NEGATIVE, Ur Phencyclidine Scrn NEGATIVE, Ur Amphetamines Screen NEGATIVE, U Methamphetamin-MDMA NEGATIVE, U Benzodiazepines Scrn NEGATIVE, Urine Cocaine Screen NEGATIVE, U Cannabinoids Screen POSITIVE H, Ur Drug Screen Comment 10/11/20 12:20: Troponin I 2.310 H* 10/11/20 12:25: POC Glucose 293 H Current Medications Acetaminophen (Acetaminophen 325 Mg Tablet) 650 mg PO Q6H PRN PRN PRN Reason: Pain Score 1-10/Temp > 100.7 F Aspirin (Aspirin E.C. 81 Mg Tablet) 81 mg PO DAILY@0800 [facility] Atorvastatin Calcium (Atorvastatin Calcium 80 Mg Tablet) 80 mg PO QHS [facility] Buprenorphine HCl (Buprenorphine Hcl 2 Mg Tab.Subl) 0 mg SL Q8H [facility]; Taper Stop: 10/14/20 12:16 Clonidine (Clonidine Hcl 0.1 Mg Tablet) 0.1 mg PO Q8H PRN PRN PRN Reason: RESTLESSNESS Dicyclomine HCl (Dicyclomine 10 Mg Capsule) 20 mg PO Q6H PRN PRN PRN Reason: Abdominal Discomfort Docusate Sodium (Docusate Sodium 100 Mg Capsule) 100 mg PO BID PRN PRN PRN Reason: Constipation Enoxaparin Sodium (Enoxaparin 100 Mg/Ml Syringe) 100 mg SC Q12 [facility] Gabapentin (Gabapentin 300 Mg Capsule) 300 mg PO Q8H PRN PRN PRN Reason: moderate to severe anxiety Hydroxyzine Pamoate (Hydroxyzine Sadia 25 Mg Capsule) 50 mg PO Q6H PRN PRN PRN Reason: mild anxiety Lactated Ringer's () 1,000 mls @ 50 mls/hr IV .Q20H [facility] Last Admin: 10/11/20 12:39 Dose: 50 mls/hr Documented by: Insulin Glargine (Insulin Glargine 100 Units/Ml Pen) 20 units SC QHS [facility] Insulin Human Lispro (Insulin Lispro 100 Unit/Ml Insuln.Pen) 0 unit SC ACHS [facility]; Protocol Last Admin: 10/11/20 12:37 Dose: 4 units Documented by: Insulin Human Lispro (Insulin Lispro 100 Unit/Ml Insuln.Pen) 6 unit SC TIDAC RAUL Last Admin: 10/11/20 12:38 Dose: 6 units Documented by: Loperamide HCl (Loperamide 2 Mg Capsule) 2 mg PO Q4H PRN PRN PRN Reason: LOOSE STOOLS Methocarbamol (Methocarbamol 750 Mg Tablet) 1,500 mg PO Q6H PRN PRN PRN Reason: MUSCLE SPASM Nitroglycerin (Nitroglycerin (Inpatient Use) 0.4 Mg Tab.Subl) 0.4 mg SUBLINGUAL Q5M PRN PRN Reason: CARDIAC/CHEST PAIN Ondansetron HCl (Ondansetron 8 Mg Tablet) 8 mg PO Q8H PRN PRN PRN Reason: NAUSEA Ondansetron HCl (Ondansetron 4 Mg/2 Ml Vial) 4 mg IV Q8H PRN PRN PRN Reason: NAUSEA/VOMITING Sodium Chloride (0.9% Saline Lock 10 Ml Syringe) 10 - 40 ml IV UD PRN PRN Reason: SALINE FLUSH Trazodone HCl (Trazodone 100 Mg Tablet) 100 mg PO QHS PRN PRN PRN Reason: INSOMNIA Assessment/Plan All Active Problems (Last Reviewed 07/15/19 @ 11:58 by Shelbi Chew) NSTEMI (non-ST elevated myocardial infarction) (Acute) Opiate withdrawal (Acute) Diabetes mellitus (Acute) Acute bronchitis (Acute) NSTEMI -Admit to PCU -Initial troponin was 0.517 -Lovenox 100 mg given in the emergency department -Tinea Lovenox 100 mg twice daily -CTA chest negative for pulmonary embolism -Aspirin loaded in the emergency department and will be continued low-dose daily -Start statin 80 mg nightly -Check lipids -Hold beta-marge with heart rates -N.p.o. after midnight for possible heart catheterization -Cardiology consult-Case discussed with on-call detailer Acute opiate withdrawal -Suboxone taper -Supportive medications -Consults 180 -Case management involvement DM-2 -Check hemoglobin A1c -BGT in the emergency department was 376 -Start Lantus 20 units -SSI -Cardiac/diabetic diet Pseudohyponatremia -Should resolve once blood sugars are improved Chronic pain status post traumatic left upper extremity amputation -Continue Lyrica -Continue baclofen -As needed Tylenol DVT prophylaxis -Therapeutic Lovenox CODE STATUS -Full Inpatient E&M: [id number] Init Hosp L3
[2020-10-11] MEDS: Acetaminophen 325 MG Tablet 650 MG PO ×2 (16:03→22:53)
--- NOTE | 2020-10-11 16:10 | CON.PCM_ITS ---
Reason for Consult Date of Consultation: 10/11/20 Reason for Consultation: Non-STEMI History of Present Illness: The patient is a 35 year old M [presenting to [place] emergency room for opiate detox and chest pain. Patient was getting opiates for chronic pain management. His chest pain was retrosternal pressure-like. It lasted about 30 minutes but he has also been getting it on and off. Patient's troponin went up to 2.3. He does not have generalized muscle aches. 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 (Chronic) Tobacco abuse (Chronic) Anxiety (Chronic) Neuropathic pain (Chronic) Surgical History: rotator cuff repair, - - fundoplication, traumatic amputation and multiple subsequent surgeries left arm Psychiatric History: No pertinent psych hx - *Family History Paternal History Items: Diabetes Maternal History Items: - - agree with the FH as outlined by TOP EDGE BEVELER Smoking Status: Current every day smoker Objective: Vital Signs Temp Pulse Resp BP Pulse Ox 98.1 F 77 12 143/98 H 98 10/11/20 15:50 10/11/20 15:50 10/11/20 15:50 10/11/20 15:50 10/11/20 15:50 Oxygen Delivery Method Room Air Weight: 208 lb 1.862 oz Body Mass Index (BMI) 29.0 Intake and Output for Last 24 Hours 10/09/20 10/10/20 10/11/20 23:59 23:59 23:59 Intake Total 120 / 120 Balance 120 / 120 General: Awake, Alert, Oriented x 3 HEENT: Atraumatic Oral: Moist Mucosa Neck: Supple Cardiovascular: Regular Rhythm Extremities: No edema Psych/Mental Status: Appropriate 10/11/20 08:55: WBC 14.4 H, RBC 5.93, Hgb 16.9 H, Hct 47.9, MCV 80.8, MCH 28.5, MCHC 35.3, Plt Count 270, MPV 11.0, Immature Gran % (Auto) 0.300, Neut % (Auto) 71.9 H, Lymph % (Auto) 19.6, [place] % (Auto) 6.5, Eos % (Auto) 1.4, Baso % (Auto) 0.3, Absolute Neuts (auto) 10.3 H, Nucleated RBC % 0 10/11/20 08:55: Sodium 133 L, Potassium 4.2, Chloride 103, Carbon Dioxide 23.0, Anion Gap 7, BUN 11, Creatinine 0.93, Est GFR (MDRD) Af Amer 118, Est GFR (MDRD) Non-Af 98, BUN/Creatinine Ratio 11.9, Glucose 376 H, Calcium 8.7, Total Bilirubin 0.40 10/11/20 08:55: Troponin I 0.517 H 10/11/20 08:55: Hemoglobin A1c 8.2 H 10/11/20 12:20: Troponin I 2.310 H* 10/11/20 14:31: Troponin I 6.470 H* Rhythm: EKG: ECHO: Stress Test: Cardiac Cath: PCI: CT Surgery: Holter monitor: EPS: PPM: CXR: Chest CT Scan: Assessment/Plan 1. Non-STEMI: Agree with aspirin, Lovenox, statin. I will also add Brilinta. Initially beta-marge was not started because patient's heart rate was on the low side. This has improved. I will also start the patient on metoprolol 12.5 mg p.o. twice daily. We will proceed with coronary angiography tomorrow. Risks and benefits explained to the patient in detail.
[2020-10-11 16:45] LABS: Bedside Glucose 267 mg/dL (70-110)
[2020-10-11] MEDS: TICAGRELOR 90 MG TABLET 180 MG PO (16:50)
[2020-10-11] MEDS: Atorvastatin Calcium 80 MG Tablet PO (22:49)
[2020-10-11] MEDS: Metoprolol Tartrate 25 MG Tablet 12.5 MG PO (22:49)
[2020-10-11] MEDS: traZODone 100 MG Tablet PO (22:53)
[2020-10-11 23:05] LABS: Bedside Glucose 292 mg/dL (70-110)
[2020-10-12] VITALS (17 sets, daily range): BP systolic 129–173; BP diastolic 79–103; PULSE 61–87; RESP 16–18; TEMP 36.2–36.7; O2SAT 95–100
[2020-10-12] MEDS: Gabapentin 300 MG Capsule PO (01:40)
[2020-10-12] MEDS: Methocarbamol 750 MG Tablet 1500 MG PO (02:10)
[2020-10-12] MEDS: Aspirin E.C. 81 MG Tablet PO (05:55)
[2020-10-12] MEDS: Metoprolol Tartrate 25 MG Tablet 12.5 MG PO ×2 (05:55→20:53)
--- NOTE | 2020-10-12 05:55 | EKG12_ITS ---
Test Reason : AM EKG Blood Pressure : / mmHG Vent. Rate : 069 BPM Atrial Rate : 069 BPM P-R Int : 174 ms QRS Dur : 104 ms QT Int : 418 ms P-R-T Axes : 040 041 049 degrees QTc Int : 447 ms Normal sinus rhythm Poor R- wave progression Confirmed by RAMESH HILARIO, GAVINO ([id number]), legal editor BOB YUSUF ([id number]) on 10/19/2020 9:50:52 AM Referred By: DR JERONIMO Confirmed By:GAVINO CHANDLER MD
[2020-10-12] MEDS: TICAGRELOR 90 MG TABLET PO ×2 (05:56→20:52)
[2020-10-12 06:46] LABS: Absolute Lymphocyte Count 3.26 X10^3/uL (0.83-4.51); Absolute Neutrophil Count 7.6 X10^3/uL (2.0-7.7); Basophil# 0.03 X10^3/uL; Basophil% 0.3 % (0-1); Eosinophils% 1.7 % (0-5); Hemoglobin 16.1 g/dL (13.0-16.5); Lymphocyte # 3.26 X10^3/ul (4.0); Lymphocyte % 27.4 % (19-41); Mean Corp Hgb Conc 34.3 g/dL (32-36); Mean Corpuscular Hgb 28.1 pg (27.0-32.0); Mean Platelet Vol. 10.9 fl (6.2-12.0); Monocyte# 0.78 X10^3/uL; Monocyte% 6.6 % (0-10); NRBC Flagged by Analyzer 0 % (0-5); Neutrophil % 63.7 % (47-70); Platelet Count 232 K/mm3 (150-450); RBC Distribution Width CV 12.6 % (11.6-14.6); RBC Distribution Width SD 37.4 fl (35.1-43.9); Red Blood Count 5.73 M/mm3 (4.6-6.2); White Blood Count 11.9 K/mm3 (4.4-11.0)
[2020-10-12 07:37] LABS: ALB/GLOB Ratio 1.2 RATIO (0.9-2.4); AST(SGOT) 43 U/L (15-37); Alanine Aminotransfer ALT/SGPT 36 U/L (16-61); Albumin, Serum 3.7 g/dL (3.2-5.0); Alkaline Phosphatase 123 U/L (45-117); Anion Gap 6 (5-15); BUN 9 mg/dL (7-18); BUN/Creat Ratio 12.9 RATIO (10-20); Calcium,Total 8.7 mg/dL (8.5-10.1); Chloride 109 mmol/L (98-107); Cholesterol 235 mg/dL (200); EST Glomerular Filtration Rate 136 mL/min (>60); Est Glom Filt Rate - Afr Amer 164 mL/min (>60); Estimated Creatinine Clearance 155.38 ml/min; Globulin 3.1 g/dL (2.2-4.2); Glucose 241 mg/dL (74-106); High Density Lipoprotein 24 mg/dL; Magnesium 2.3 mg/dL (1.6-2.6); Phosphorus 3.3 mg/dL (2.5-4.9); Potassium 3.4 mmol/L (3.5-5.1); Protein, Total 6.8 g/dL (6.4-8.2); Sodium Level 138 mmol/L (136-145); Thyroid Stim Hormone (TSH) 4.38 uIU/mL (0.358-3.74); Triglycerides 724 mg/dL
[2020-10-12] MEDS: Insulin Lispro 100 UNIT/ML INSULN.PEN SC ×3 (07:44→17:32)
[2020-10-12] MEDS: Lactated Ringers 1,000 ML 50 ML IV (07:47)
[2020-10-12 07:56] LABS: Bedside Glucose 279 mg/dL (70-110)
--- NOTE | 2020-10-12 09:05 | CASEMGMT ---
SW met with patient, introduced self and role at [facility]. SW asked patient if he was familiar with [facility] and he was not so SW explained the agency. SW asked if he would be willing to talk with someone from [facility] and he said he would. SW spoke with June from [facility] and she will talk with patient. Loulou NIETO
--- NOTE | 2020-10-12 09:58 | CASEMGMT ---
According to the [employer] PPO website, the following are in-network tertiary facilities: [facility], [place], [facility], [place], [facility], [facility], [place], [facility], and . Za BREWSTER CM
--- NOTE | 2020-10-12 10:05 | CASEMGMT ---
June from [facility] spoke with patient this am. He will see her as an outpatient on October 18, 2020 at 3p. She will also assist in getting him in to see Dr Manzo with [facility] who can assist with Suboxone. Loulou BRADSHAW MACHINE PACKER
--- NOTE | 2020-10-12 12:05 | CASEMGMT ---
NEY RODRIGUEZ assessment: Face to Face with patient for initial transition planning/care coordination assessment. NEY RODRIGUEZ introduced self and role at [facility], pt voices understanding and consents to assessment at this time. Pt is sitting up in bed in no distress at this time. Pt is A/Ox4 at this time and answers all questions appropriately at this time but is short with answers at times and is requesting pain meds. Joshua BREWSTER aware, voices understanding. Care providers, pharmacy, and demographics verified at this time. Presentation: Pt to triage, screaming 'my chest hurts'. pt hyperventilating. pt then states 'i think i am in opioid w/d' pt lying on floor Admitting dx: CP PCP: Micki Specialists: Pt states has multiple specialists for his traumatic left arm amputation and per H&P was recently discharged from [facility] pain management on 07/31/20 for violent behavior and noncompliant with meds as he was running out of scripts too early. Preferred Pharmacy: [facility] Insurance: [employer] Prescription Benefit: [employer] Living Will/HPOA: Pt states does not have LW/HPOA and declines AD info at this time. LNOK: Lorena Whaley, Living Arrangements: Pt states lives with family in 2 story home and states no concerns at home at this time. Pt states is independent with ADL's. Transportation: Pt states drives self and states no transportation concerns at this time. DME/HHC: Pt states no current DME or need for any DME at this time but does have prosthetic for arm. Pt states has been to [facility] and [facility] rehab in the past and declines hx of HHC. Pt states is active at [facility] for therapy. Pt states no concerns with going home at time of discharge. Pt states is still on workers comp from injury in 2017. Pt states smokes 1/2pack daily of cigarettes and states does not drink ETOH. Pt states no further concerns/needs at this time other than getting pain meds at this time and RN aware. CM to follow for any further discharge planning/needs. Advised pt to ask for CM if any further questions/concerns/needs arise, voices understanding. Pt Goal: Home Plan: [place] NEY RODRIGUEZ
[2020-10-12] MEDS: Insulin Lispro 100 UNIT/ML INSULN.PEN 6 UNIT SC ×2 (12:26→17:32)
[2020-10-12 12:41] LABS: Bedside Glucose 232 mg/dL (70-110)
--- NOTE | 2020-10-12 14:05 | CL.I_ITS ---
Patient Name: EARL NAZARIO Study Date: 10/12/2020 Performing: Joanne Hernandez MD Ht: 71 inches 180 cm : 1985 Wt: 207.5 lbs 94 kg Age: 35 Gender: male BSA: 2.14 PROCEDURE(S) PERFORMED AN32-WIA/COR/LV [id number] W OR WO PTCA, SINGLE CORONARY ARTERY CLINICAL PROFILE AND CO-MORBIDITIES Indications: ACS <= 24 hrs Heart Failure: None Stress/Imaging Stress/Image Study Performed: No CAD Presentations: Non-STEMI. Symptom onset Date/Time: 10/11/20 Time Not Available CONCLUSIONS CAD as described. EF is 55% with hypokinesis of the high anterolateral wall. No significant or MR. 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 Successful PCI of pLCx with CRISTI RECOMMENDATIONS Dual antiplatelet therapy for 1 year. If patient has angina despite medical therapy, consider FFR / P CI of RCA DESCRIPTION OF PROCEDURE The patient arrived to the procedure lab. The risks and benefits of the procedure as well as a full d escription of our services here and lack of surgical backup were fully explained to the patient and/o r their significant other prior to the catheterization. The Timeout was completed, verifying the huy ect patient and procedure. The patient's procedural site was prepped and draped in the usual fashion. Local anesthetic was given subcutaneously to right radial region with Lidocaine 2%. Using a modified Seldinger technique, arterial access was obtained via the right radial artery, a 6Fr sheath was inse rted.. LV to AO pullback pressures were then recorded. Left Coronary Artery selective angiography wa s performed in multiple views using a 5 Fr. JL3.5 catheter. Right Coronary Artery selective angiograp hy was then performed in multiple views using a 5 Fr. JR 4 catheter. Left Ventriculography was perfor med in SPENCER projection using a 5 Fr. JR4. LV to AO pullback pressures were then recordedThe images were reviewed and options discussed. A decision was then made to proceed with an Intervention, IVUS or other adjunct procedure. AL 1.0 Guide catheter was inserted and engaged into the RCA. Angiogram performed pre balloon dila tation. BMW Guide wire was advanced to the Circumflex. 2.25 x 20 Emerge Balloon catheter was advanced across lesion in the circumflex, proximal. PTCA balloon inflated at 8 atms for 17 secs. Angiogram pe rformed post balloon dilatation. 2.5 x 24 Synergy Drug Eluting stent was advanced across the lesion i n the circumflex, proximal. Angiogram performed pre stent deployment. 2.5 x 12 NC Emerge Balloon cath eter was inserted post stent. PTCA balloon inflated at 14 atms for 11 secs. PTCA balloon inflated at 14 atms for 31 secs. Angiogram performed post stent deployment. The arterial sheath was pulled and a TR Band was applied for hemostasis CORONARY ANGIOGRAPHY DOMINANCE: Right Dominant LEFT HEART ASSESSMENT Left Ventricular Ejection Fraction: by LV Gram 55 % Hypokinesis of the anterolateral wall LEFT MAIN: No significant disease noted LEFT ANTERIOR DESCENDING ARTERY: No significant disease noted CIRCUMFLEX ARTERY: PROX CIRC: 95 % Stenosis. 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 RIGHT CORONARY ARTERY: PROX RCA: Mild luminal irregularities DISTAL RCA: 60 % Stenosis VALVE FINDINGS: No Aortic Valve Stenosis No Mitral Valve Stenosis INTERVENTION INFORMATION LESION SITE: Circumflex (Proximal) Lesion Complexity: High/C, chronic total occlusion: No, lesion at bifurcation: No, thrombus present: No, lesion length: 22 mm, culprit lesion: Yes, Previously treated lesion: No Pre Stenosis: 95 % Pre intervention DAHLIA flow: 3 PROCEDURE: Drug Eluting Stent with pre and post dilatation Post Stenosis: 0 % Post intervention DAHLIA flow: 3 Lesion Devices: Cubbyingtronic 6 Fr AL1.0 100cm Guide Catheter [place] .014 BMW Aurora Straight 190cm Bc Sci EMERGE MR 2.25x20 BALLOON Bc Sci Synergy MR CRISTI 2.50x24 Bc Sci NC EMERGE MR 2.50x12 BALLOON COMPLICATIONS No Complications PROCEDURE MEDICATIONS Versed 1 mg IV Oxygen: 2 L/min via nasal cannula Heparin 6000 unit(s) IV 10/12/2020 10:40:33 SUMMARY OF HEMODYNAMIC DATA Time AIR REST ECG 10:03:17 AO 104/76 (90) SA 10:23:59 LV 129/-8, 11 10:31:42 LV 129/-7, 6 10:31:50 LV 130/2, 17 10:32:37 LVp 121/2, 14 10:33:08 AOp 117/76 (96) 10:33:13 AO 106/71 (88) 10:33:17 AO 106/66 (86) 10:45:59 Signed By Joanne Hernandez MD On 10/12/2020 14:04:30 Joanne Hernandez MD
--- NOTE | 2020-10-12 15:08 | CRPH1.INST_ITS ---
General Education CAD and cardiac anatomy and function:: Patient communicates acknowledgment Explanation of diagnoses and procedures:: Patient communicates acknowledgment Sign/Symptoms of MN:: Patient communicates acknowledgment Antiplatelet therapy: Patient communicates acknowledgment Emergency procedures and activation of EMS: Patient communicates acknowledgment Compliance of all prescribed medications: Patient communicates acknowledgment Smoking Patient Nicotine/Smoking Risk Factors Are:: Cigarettes Recommendations Include:: Smoking cessation strategies/Smoking packet, Second- hand smoke recommendation, Participation in a smoking cessation program Nicotine/Smoking Response Code:: Patient communicates acknowledgment, Needs reinforcement Dyslipidemia Patient Dyslipidemia Risk Factors Are:: Total Cholesterol - 235, Triglycerides - 724, HDL - 24, LDL - TNP Recommendations Include:: Lipid profile provided, Lipid profile not available, Reviewed NCEP/ATP guidelines, Therapeutic Lifestyle Change dietary guidelines Dyslipidemia Response Code:: Patient communicates acknowledgment, Needs reinforcement Overweight/Obesity Patient Overweight/Obesity Risk Factors Are:: Overweight = 26-29 Recommendations Include:: Weight loss of 5-10%, Reduced calorie diet, Exercise 5-7 times/week Overweight/Obesity:: Patient communicates acknowledgment Hypertension Recommendations Include:: Maintain BP <130/85, BP <130/80 if diabetic, DASH dietary guidelines, Decrease/maintain normal body weight Hypertension:: Patient communicates acknowledgment, Needs reinforcement Diabetes Patient Diabetes Risk Factors Are:: Elevated blood sugars Date of HgbA1c:: 10/12/20 - 8.2% A1c; Glucose 241 Recommendations Include:: Maintain fasting blood sugars 70-110 md/dL, Maintain HgbA1c of 6% or less, Monitor blood sugar as prescribed, Diabetic dietary guidelines, Decrease/maintain body weight Diabetes:: Patient communicates acknowledgment, Needs reinforcement Metabolic Syndrome Patient Metabolic Syndrome Risk Factors Are [3 of 5]:: Fasting blood sugar > 100 mg/dL, High triglyceride >150, Hypertension, Low HDL <40 [male] or < 50 [female] Recommendations Include:: Reinforce compliance to risk factor modifications, Patient is diabetic, Encouraged follow-up with Primary Care Physician Metabolic Syndrome Response Code:: Patient communicates acknowledgment, Needs reinforcement
--- NOTE | 2020-10-12 15:08 | CRPHASE1_ITS ---
Patient Communication PHII Cardiac Rehab Discussed with Patient:: Yes Guide to Cardiac Rehab Given to Patient:: Yes Cardiac Rehab Facility Choice List Given to Patient:: Yes Choice Program [facility] CR PHII:: Communication Given to CR, Refer to [facility] Choice Program Other:: Communication Given to CR, With permission faxed order and referral information Ad Copy Writer:: Maria M Hernandez Refer Phase II Cardiac Rehab:: Yes Sessions:: 36 sessions - 2 days/wk, 18 weeks Risk Factors/Lifestyle Laboratory Values: Cardiac Rehab Phase I Labs Hemoglobin A1c 8.2 % (3.8-5.6) H 10/11/20 08:55 Triglycerides 724 mg/dL (-199) H 10/12/20 06:10 Cholesterol 235 mg/dL (200) H 10/12/20 06:10 LDL Cholesterol TNP 10/12/20 06:10 HDL Cholesterol 24 mg/dL (40-) L 10/12/20 06:10 Cardiac Rehabilitation Info Cardiac Rehabilitation Program Information: Cardiac Rehabilitation is important for patients like you who are recovering from a heart problem. Cardiac rehabilitation programs are recognized as integral to the continued care of the patient with coronary heart disease. The cardiac rehabilitation program is designed to optimize a patient's physical, psychological, and social functioning. [facility] childcare center director work in cardiac rehabilitation programs and assist you with getting the treatments you need to get stronger and healthier - like exercise, healthy eating habits, and medications. Cardiac rehabilitation has been show to help people with heart problems live longer and have better life enjoyment than people who do not go to cardiac rehabilitation. Please contact the Cardiac Rehabilitation Program at [facility] at in two weeks if you have not heard from them.
[2020-10-12] MEDS: Acetaminophen 325 MG Tablet 650 MG PO (16:34)
[2020-10-12 18:26] LABS: Bedside Glucose 199 mg/dL (70-110)
--- NOTE | 2020-10-12 19:37 | PN_ITS ---
Patient Problems: Active and Suspected Problems (Last Updated 10/12/20 @ 14:27 by Francine Bell) NSTEMI (non-ST elevated myocardial infarction) (Acute) Opiate withdrawal (Acute) Diabetes mellitus (Acute) Subjective: Was seen and examined today, I talked extensively with his who was in his room today, patient stated to me that he did not want to be placed back on narcotics for his chronic pain, he understands that it is risky using nonsteroidal anti-inflammatory agents since he underwent an angioplasty today with stent placement and he will be on aspirin and Brilinta. I have stopped the patient's Subutex. I called the patient's PCP who stated that he was unable to provide pain medicine for the patient due to the fact he is a Workmen's Comp. claim and any treatment for the patient's chronic pain will have to go through Workmen's Comp. I did call a pain management physician that the patient had seen in the past, the office stated that they would see the patient in the future if needed but they were not able to provide any narcotics for the patient if he desired this due to the fact the patient smokes medical marijuana. This was Dr. Guallpa's office. - Physical Exam Vitals/I&O's: Vital Signs Temp Pulse Resp BP Pulse Ox 97.6 F L 87 18 168/95 H 99 10/12/20 16:27 10/12/20 16:27 10/12/20 16:27 10/12/20 16:27 10/12/20 16:27 Oxygen Delivery Method Room Air Weight: 94.4 kg Body Mass Index (BMI) 29.0 Intake and Output for Last 24 Hours 10/10/20 10/11/20 10/12/20 23:59 23:59 23:59 Intake Total 620 / 740 1285 / 1285 Balance 620 / 740 1285 / 1285 General: Alert, Oriented x3, Cooperative, No apparent distress, Well developed, Well nourished HEENT: Atraumatic, PERRLA, EOMI, Normocephalic Oral: Moist Mucosa Neck: Supple, No JVD, Trachea Midline, Thyroid Normal Size and Texture Lungs: Clear to auscultation, Normal air movement, No rhonchi, No wheeze, No rales Cardiovascular: Regular rate, Regular Rhythm, Normal S1, Normal S2, No murmurs, PMI Normal, No rub noted, No Gallop Abdomen: Bowel Sounds Present, Soft, Non Tender Extremities: No clubbing, No cyanosis, No edema, Capillary Refill Less than 3 Seconds, - - Left-sided above the elbow amputation noted to be present-this is remote Skin: No rashes, No breakdown Musculoskeletal: No Tenderness to Palpation of Joints or Extremities Neurological: Cranial nerves II-XII grossly intact, Neuro grossly intact, Sensory exam intact to light touch and pain Psych/Mental Status: Normal Affect, Appropriate, Alert and oriented to time, place, person, mood and affect Laboratory Results 10/11/20 22:46: POC Glucose 292 H 10/12/20 06:10: WBC 11.9 H, RBC 5.73, Hgb 16.1, Hct 47.0, MCV 82.0, MCH 28.1, MCHC 34.3, RDW Std Deviation 37.4, RDW Coeff of Scooter 12.6, Plt Count 232, MPV 10.9, Immature Gran % (Auto) 0.300, Neut % (Auto) 63.7, Lymph % (Auto) 27.4, [place] % (Auto) 6.6, Eos % (Auto) 1.7, Baso % (Auto) 0.3, Absolute Neuts (auto) 7.6, Absolute Lymphs (auto) 3.26, Nucleated RBC % 0 10/12/20 06:10: Sodium 138, Potassium 3.4 L, Chloride 109 H, Carbon Dioxide 23.0, Anion Gap 6, BUN 9, Creatinine 0.70, Estim Creat Clear Calc 155.38, Est GFR (MDRD) Af Amer 164, Est GFR (MDRD) Non-Af 136, BUN/Creatinine Ratio 12.9, Glucose 241 H, Calcium 8.7, Phosphorus 3.3, Magnesium 2.3, Total Bilirubin 0.50, AST 43 H, ALT 36, Alkaline Phosphatase 123 H, Total Protein 6.8, Albumin 3.7, Globulin 3.1, Albumin/Globulin Ratio 1.2, Triglycerides 724 H, Cholesterol 235 H , LDL Cholesterol TNP, VLDL Cholesterol TNP, HDL Cholesterol 24 L, TSH 4.38 H 10/12/20 07:43: POC Glucose 279 H 10/12/20 12:25: POC Glucose 232 H 10/12/20 17:30: POC Glucose 199 H Current Medications Acetaminophen (Acetaminophen 325 Mg Tablet) 650 mg PO Q6H PRN PRN PRN Reason: Pain Score 1-10/Temp > 100.7 F Last Admin: 10/12/20 16:34 Dose: 650 mg Documented by: Aspirin (Aspirin E.C. 81 Mg Tablet) 81 mg PO DAILY@0800 [facility] Last Admin: 10/12/20 05:55 Dose: 81 mg Documented by: Atorvastatin Calcium (Atorvastatin Calcium 80 Mg Tablet) 80 mg PO QHS [facility] Last Admin: 10/11/20 22:49 Dose: 80 mg Documented by: Insulin Glargine (Insulin Glargine 100 Units/Ml Pen) 20 units SC QHS [facility] Last Admin: 10/11/20 22:48 Dose: 20 u Documented by: Insulin Human Lispro (Insulin Lispro 100 Unit/Ml Insuln.Pen) 0 unit SC ACHS [facility]; Protocol Last Admin: 10/12/20 17:32 Dose: 2 units Documented by: Insulin Human Lispro (Insulin Lispro 100 Unit/Ml Insuln.Pen) 6 unit SC TIDAC [facility] Last Admin: 10/12/20 17:32 Dose: 6 units Documented by: Loperamide HCl (Loperamide 2 Mg Capsule) 2 mg PO Q4H PRN PRN PRN Reason: LOOSE STOOLS Methocarbamol (Methocarbamol 750 Mg Tablet) 1,500 mg PO Q6H PRN PRN PRN Reason: MUSCLE SPASM Last Admin: 10/12/20 02:10 Dose: 1,500 mg Documented by: Metoprolol Tartrate (Metoprolol Tartrate 25 Mg Tablet) 12.5 mg PO BID [facility] Last Admin: 10/12/20 05:55 Dose: 12.5 mg Documented by: Nicotine (Nicotine 21 Mg Patch) 21 mg TD DAILY [facility] Last Admin: 10/12/20 11:50 Dose: 21 mg Documented by: Nitroglycerin (Nitroglycerin (Inpatient Use) 0.4 Mg Tab.Subl) 0.4 mg SUBLINGUAL Q5M PRN PRN Reason: CARDIAC/CHEST PAIN Ondansetron HCl (Ondansetron 8 Mg Tablet) 8 mg PO Q8H PRN PRN PRN Reason: NAUSEA Ondansetron HCl (Ondansetron 4 Mg/2 Ml Vial) 4 mg IV Q8H PRN PRN PRN Reason: NAUSEA/VOMITING Sodium Chloride (0.9% Saline Lock 10 Ml Syringe) 10 - 40 ml IV UD PRN PRN Reason: SALINE FLUSH Ticagrelor (Ticagrelor 90 Mg Tablet) 90 mg PO BID [facility] Last Admin: 10/12/20 05:56 Dose: 90 mg Documented by: Trazodone HCl (Trazodone 100 Mg Tablet) 100 mg PO QHS PRN PRN PRN Reason: INSOMNIA Last Admin: 10/11/20 22:53 Dose: 100 mg Documented by: Medical Necessity - Tobacco Use Smoking Status: Current every day smoker Assessment/Plan All Active Problems (Last Updated 10/12/20 @ 14:27 by Francine Bell) NSTEMI (non-ST elevated myocardial infarction) (Acute) Opiate withdrawal (Acute) Diabetes mellitus (Acute) Acute bronchitis (Acute) #1 acute non-STEMI secondary to occlusive coronary artery disease-patient had cardiac catheterization performed today and a stent was placed and PCI was carried out. #2 occlusive coronary artery disease left circumflex #3 type 2 diabetes-uncontrolled-, I will place the patient on Metformin at the time of discharge, patient may need to be on insulin but he does not want to take injections. It appears that he may have to be on insulin at the time of discharge for blood sugar control. 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 I will place the patient on Elavil for pain control, patient was on this medication as an outpatient but ran out. #5 nonocclusive coronary artery disease right coronary artery-this will be treated medically #6 hyperlipidemia-patient is currently on Lipitor, his triglycerides are elevated but this may be due to uncontrolled diabetes. Patient does not appear to be undergoing opiate withdrawal at this time, I have elected to stop his Subutex. He may elect to follow-up with 180 as an outpatient. Inpatient E&M: [id number] [facility] L2
[2020-10-12] MEDS: Atorvastatin Calcium 80 MG Tablet PO (20:53)
[2020-10-12] MEDS: Amitriptyline 25 MG Tablet PO (21:03)
[2020-10-12 22:16] LABS: Bedside Glucose 137 mg/dL (70-110)
[2020-10-13] VITALS (7 sets, daily range): BP systolic 137–153; BP diastolic 75–85; PULSE 54–74; RESP 15–18; TEMP 36.4–36.5; O2SAT 94–98
[2020-10-13] MEDS: Pregabalin 75 MG Capsule 150 MG PO (02:14)
[2020-10-13] MEDS: Insulin Lispro 100 UNIT/ML INSULN.PEN SC (08:43)
[2020-10-13] MEDS: TICAGRELOR 90 MG TABLET PO (08:44)
[2020-10-13] MEDS: Insulin Lispro 100 UNIT/ML INSULN.PEN 6 UNIT SC (08:44)
[2020-10-13] MEDS: Aspirin E.C. 81 MG Tablet PO (08:44)
[2020-10-13] MEDS: Metoprolol Tartrate 25 MG Tablet 12.5 MG PO (08:44)
[2020-10-13 08:56] LABS: Bedside Glucose 208 mg/dL (70-110)
--- NOTE | 2020-10-13 09:11 | PCM.DC ---
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) Tobacco abuse (Chronic) Anxiety (Chronic) Neuropathic pain (Chronic) You will use the following diet at home:: Calorie/Carbohydrate Controlled (specify 1200, 1400, etc) - 1800 oscar Your food should be the consistency of: Regular Your liquids should be the consistency of: Regular/Thin Discharge Activity: Return to Normal Activity Weight Bearing Status: Full weight bearing Additional Instructions: Be careful taking Ibuprofen- if you see any blood in your stool or have black stools, stop the Ibuprofen There is a risk of bleeding with Ibuprofen Take only an 81 mg Aspirin a day, do not take aspirin for pain Allergies/Adverse Reactions: Allergies adhesive tape Allergy (Verified 10/11/20 08:35) Rash Medications to take at Discharge Pregabalin [Lyrica] 150 mg PO BID 06/09/17 Amitriptyline HCl [Elavil] 25 mg PO QHS #60 tab 10/13/20 Aspirin E.C. [Ecotrin] 81 mg PO DAILY@0800 tab 10/13/20 Atorvastatin Calcium [Lipitor] 80 mg PO QHS #30 tab 10/13/20 Baclofen 10 mg PO TID PRN PRN #90 tab 10/13/20 Insulin Glargine [Lantus SoloStar Pen] 20 units SC QHS #5 pen 10/13/20 Lisinopril [Zestril] 10 mg PO DAILY #30 tab 10/13/20 Metformin HCl 500 mg PO BID #60 tab 10/13/20 Metoprolol Tartrate [Lopressor (beta marge)] 12.5 mg PO BID #30 tab 10/13/20 Pantoprazole Sodium [Protonix] 40 mg PO DAILY #30 tab 10/13/20 Ticagrelor [Brilinta] 90 mg PO BID #60 tab 10/13/20 The following prescriptions were given: Baclofen 10 mg PO TID PRN PRN #90 tab PRN Reason: Muscle Spasm Transmission Status: Received by [id number] Ticagrelor [Brilinta] 90 mg PO BID #60 tab Transmission Status: Received by [facility][id number] Amitriptyline HCl [Elavil] 25 mg PO QHS #60 tab Transmission Status: Received by [facility][id number] Insulin Glargine [Lantus SoloStar Pen] 20 units SC QHS #5 pen Transmission Status: Received by [facility][id number] Atorvastatin Calcium [Lipitor] 80 mg PO QHS #30 tab Transmission Status: Received by [facility][id number] Metoprolol Tartrate [Lopressor (beta marge)] 12.5 mg PO BID #30 tab Transmission Status: Received by [facility][id number] Metformin HCl 500 mg PO BID #60 tab Transmission Status: Pending to [facility][id number] Pantoprazole Sodium [Protonix] 40 mg PO DAILY #30 tab Transmission Status: Pending to [facility][id number] Lisinopril [Zestril] 10 mg PO DAILY #30 tab Transmission Status: Pending to [facility][id number] Orders to be completed after discharge: Phase II, Outpatient Cardiac Rehab Location: None Selected Primary Care Physician: Abdoulaye Sweet MD [Primary Care Provider] - Please follow up with your Primary Care Physician in: in 2 weeks Test Results: Test results from this visit will be discussed in further detail at your follow-up appointment, if applicable. Please Follow Up With: June from [facility] When: Please Follow Up With: Maria M Hernandez MD When: in one month-call for appointment Please Follow Up With: Your workman's comp physician When: to get referral to see Dr. Alejandre (pain management)
--- NOTE | 2020-10-13 10:20 | PN.CARD_ITS ---
Subjectve: The patient is awake and alert. He states he is feeling well at this time. Objective: Vital Signs Temp Pulse Resp BP Pulse Ox 97.6 F L 74 15 137/85 H 95 10/13/20 08:27 10/13/20 08:44 10/13/20 08:27 10/13/20 08:27 10/13/20 08:27 Oxygen Delivery Method Room Air Weight: 208 lb 1.862 oz Body Mass Index (BMI) 29.0 Intake and Output for Last 24 Hours 10/11/20 10/12/20 10/13/20 23:59 23:59 23:59 Intake Total 620 / 740 2285 / 2645 600 / 600 Balance 620 / 740 2285 / 2645 600 / 600 General: Awake, Alert, Oriented x 3, Cooperative, No Acute Distress HEENT: Atraumatic, Normocephalic, PERRL, EOMI, Sclera Non Icteric Neck: Supple, Good ROM, No JVD Lungs: Clear to auscultation Cardiovascular: Regular Rhythm, Normal S1, Normal S2 Vascular: No Carotid Bruits, Normal Radial Pulses Abdomen: Bowel Sounds Present, Soft Extremities: No edema Psych/Mental Status: Appropriate Rhythm: Sinus rhythm Cardiac cath: 10/12/2020 CONCLUSIONS CAD as described. EF is 55% with hypokinesis of the high anterolateral wall. No significant or MR. 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 Successful PCI of pLCx with CRISTI RECOMMENDATIONS Dual antiplatelet therapy for 1 year. If patient has angina despite medical therapy, consider FFR / PCI of RCA DESCRIPTION OF PROCEDURE The patient arrived to the procedure lab. The risks and benefits of the procedure as well as a full description of our services here and lack of surgical backup were fully explained to the patient and/or their significant other prior to the catheterization. The Timeout was completed, verifying the correct patient and procedure. The patient's procedural site was prepped and draped in the usual fashion. Local anesthetic was given subcutaneously to right radial region with Lidocaine 2%. Using a modified Seldinger technique, arterial access was obtained via the right radial artery, a 6Fr sheath was inserted.. LV to AO pullback pressures were then recorded. Left Coronary Artery selective angiography was performed in multiple views using a 5 Fr. JL3.5 catheter. Right Coronary Artery selective angiography was then performed in multiple views using a 5 Fr. JR 4 catheter. Left Ventriculography was performed in SPENCER projection using a 5 Fr. JR4. LV to AO pullback pressures were then recordedThe images were reviewed and options discussed. A decision was then made to proceed with an Intervention, IVUS or other adjunct procedure. AL 1.0 Guide catheter was inserted and engaged into the RCA. Angiogram performed pre balloon dilatation. BMW Guide wire was advanced to the Circumflex. 2.25 x 20 Emerge Balloon catheter was advanced across lesion in the circumflex, proximal. PTCA balloon inflated at 8 atms for 17 secs. Angiogram performed post balloon dilatation. 2.5 x 24 Synergy Drug Eluting stent was advanced across the lesion in the circumflex, proximal. Angiogram performed pre stent deployment. 2.5 x 12 NC Emerge Balloon catheter was inserted post stent. PTCA balloon inflated at 14 atms for 11 secs. PTCA balloon inflated at 14 atms for 31 secs. Angiogram performed post stent deployment. The arterial sheath was pulled and a TR Band was applied for hemostasis CORONARY ANGIOGRAPHY DOMINANCE: Right Dominant LEFT HEART ASSESSMENT Left Ventricular Ejection Fraction: by LV Gram 55 % Hypokinesis of the anterolateral wall LEFT MAIN: No significant disease noted LEFT ANTERIOR DESCENDING ARTERY: No significant disease noted CIRCUMFLEX ARTERY: PROX CIRC: 95 % Stenosis. 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 RIGHT CORONARY ARTERY: PROX RCA: Mild luminal irregularities DISTAL RCA: 60 % Stenosis VALVE FINDINGS: No Aortic Valve Stenosis No Mitral Valve Stenosis INTERVENTION INFORMATION LESION SITE: Circumflex (Proximal) Lesion Complexity: High/C, chronic total occlusion: No, lesion at bifurcation: No, thrombus present: No, lesion length: 22 mm, culprit lesion: Yes, Previously treated lesion: No Pre Stenosis: 95 % Pre intervention DAHLIA flow: 3 PROCEDURE: Drug Eluting Stent with pre and post dilatation Post Stenosis: 0 % Post intervention DAHLIA flow: 3 Lesion Devices: Hmizate.matronic 6 Fr AL1.0 100cm Guide Catheter [place] .014 BMW [place]on Straight 190cm Bc Sci EMERGE MR 2.25x20 BALLOON Bc Sci Synergy MR CRISTI 2.50x24 Bc Sci NC EMERGE MR 2.50x12 BALLOON COMPLICATIONS No Complications PROCEDURE MEDICATIONS Versed 1 mg IV Oxygen: 2 L/min via nasal cannula Heparin 6000 unit(s) IV 10/12/2020 10:40:33 SUMMARY OF HEMODYNAMIC DATA Time AIR REST ECG 10:03:17 AO 104/76 (90) SA 10:23:59 LV 129/-8, 11 10:31:42 LV 129/-7, 6 10:31:50 LV 130/2, 17 10:32:37 LVp 121/2, 14 10:33:08 AOp 117/76 (96) 10:33:13 AO 106/71 (88) 10:33:17 AO 106/66 (86) 10:45:59 Signed By Joanne Hernandez MD On 10/12/2020 14:04:30 Medical Necessity - Tobacco Use Smoking Status: Current every day smoker Assessment/Plan 1. CAD status post PCI The patient is awake and alert. He denies any ongoing acute symptoms. He appears to be symptomatically and hemodynamically stable at the moment. The plan is for release home for continued outpatient cardiovascular follow-up. 2. Non-STEMI The patient was reported as having a non-STEMI. He is undergoing evaluation as noted. This culminated in his cardiac cathet erization findings and subsequent PCI. Again at the moment he appears to be symptomatically hemodynamically stable. Per previous conversations with Dr. Hernandez the tentative plan is for release of the patient home for continued outpatient cardiovascular follow-up. 3. Diabetes mellitus The patient will continue to follow with his other physicians for this diagnosis. Comment: The patient's case has been discussed and reviewed with Dr. Doll. This note was generated using a voice recognition system and there may be incorrect words, spelling or punctuation that were not noted when reviewing the office note prior to saving.
--- NOTE | 2020-10-13 10:25 | NURSING ---
Patient refused to allow RN to finish providing discharge instructions and teachings.
--- NOTE | 2020-10-14 09:29 | PCM.DC.SUM ---
Discharge Date and Diagnosis - Problem List Patient Problems: Active and Suspected Problems (Last Updated 10/12/20 @ 14:27 by Francine Bell) NSTEMI (non-ST elevated myocardial infarction) (Acute) Opiate withdrawal (Acute) Diabetes mellitus (Acute) Date of Admission: 10/11/20 Date of Discharge: 10/13/20 - Primary Discharge Diagnosis Acute Problems: Active Problems (Last Updated 10/12/20 @ 14:27 by Francine Bell) NSTEMI (non-ST elevated myocardial infarction) (Acute) Occlusive coronary artery disease Chronic pain left arm Type 2 diabetes-uncontrolled Nonocclusive coronary artery disease right coronary artery Hyperlipidemia Acute opioid withdrawal was ruled out - Secondary Discharge Diagnosis Chronic Problems: Chronic Problems (Last Updated 10/12/20 @ 14:27 by Francine Bell) 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 He states that he has been off narcotics for 8 days, he is having generalized pain in his left arm, anxiety, and chest discomfort. Work-up in the emergency room included an EKG which showed no ischemic changes, white blood cell count was elevated at 11.9, and troponin was elevated at 0.51. Patient's tox screen was positive for cannabinol, patient's glucose was elevated at 293. Patient was admitted to PCU, cardiac enzymes were cycled and the next set of cardiac enzymes revealed a troponin of 6.47. Patient exhibited no symptoms of opioid withdrawal, he did appear nervous however. Patient underwent a cardiac catheterization on 10/12/20 which showed nonocclusive coronary artery disease in the right coronary artery and occlusive coronary artery disease in the circumflex artery, PCI was carried out and a stent was placed in the area. I had discussions with the patient during his hospitalization, he did not desire to go back on opioids for pain, I contacted the pain management physician (Dr. Guallpa) he had seen this pain management physician in the past and I was told by his office that the patient could come back for reevaluation of his chronic pain. He had seen Dr. Guallpa once and was not given any opiates due to the fact the patient is on medical marijuana, patient did not return for further treatment. Patient's blood sugars were elevated during his hospitalization he was placed on insulin, his hemoglobin A1c was elevated despite the patient telling me that a recent hemoglobin A1c was 7. On 10/13/2020, patient was seen and examined: On examination he appeared in good health and spirits. Vital signs as documented. Skin warm and dry and without overt rashes. Neck without JVD, neck was supple, trachea midline, thyroid was normal. Lungs clear bilaterally, normal air movement was noted. Heart exam notable for regular rhythm, normal sounds and absence of murmurs, rubs or gallops. Abdomen unremarkable and without evidence of organomegaly, masses, or abdominal aortic enlargement. Bowel sounds are present, abdomen is not distended. Extremities nonedematous, no cyanosis was noted, no clubbing was noted. Neuro: Cranial nerves II through XII are grossly intact, no focal motor deficits were noted, sensation to light touch and pinprick intact, motor exam 5/5 throughout. Psych: Patient is alert and oriented x3, he does not appear anxious or depressed, he does not appear agitated. Patient was discharged in stable condition on 10/13/2020, he was cautioned to be careful using nonsteroidal anti-inflammatory medications for his pain due to the fact he was on Brilinta and aspirin. Patient understood this, he was placed on Protonix to help with any gastric irritation if he took nonsteroidals. Patient was instructed to follow-up with [facility] detox services. Patient Problems: Active and Suspected Problems (Last Updated 10/12/20 @ 14:27 by Francine Bell) NSTEMI (non-ST elevated myocardial infarction) (Acute) Opiate withdrawal (Acute) Diabetes mellitus (Acute) - Physical Exam Vitals/I&O's: Vital Signs Temp Pulse Resp BP Pulse Ox 97.6 F L 74 15 137/85 H 95 10/13/20 10:25 10/13/20 10:25 10/13/20 10:25 10/13/20 10:25 10/13/20 10:25 Oxygen Delivery Method Room Air Weight: 94.4 kg Body Mass Index (BMI) 29.0 Intake and Output for Last 24 Hours 10/12/20 10/13/20 10/14/20 23:59 23:59 23:59 Intake Total 2285 / 2645 600 / 600 Balance 2285 / 2645 600 / 600 Discharge Activity: Return to Normal Activity Weight Bearing Status: Full weight bearing Home Medications: Medications to take at Discharge Pregabalin [Lyrica] 150 mg PO BID 06/09/17 Amitriptyline HCl [Elavil] 25 mg PO QHS #60 tab 10/13/20 Aspirin E.C. [Ecotrin] 81 mg PO DAILY@0800 tab 10/13/20 Atorvastatin Calcium [Lipitor] 80 mg PO QHS #30 tab 10/13/20 Baclofen 10 mg PO TID PRN PRN #90 tab 10/13/20 Insulin Glargine [Lantus SoloStar Pen] 20 units SC QHS #5 pen 10/13/20 Lisinopril [Zestril] 10 mg PO DAILY #30 tab 10/13/20 Metformin HCl 500 mg PO BID #60 tab 10/13/20 Metoprolol Tartrate [Lopressor (beta aneta)] 12.5 mg PO BID #30 tab 10/13/20 Nitroglycerin 0.4 mg SL Q5M PRN #25 tab.sl 10/13/20 Pantoprazole Sodium [Protonix] 40 mg PO DAILY #30 tab 10/13/20 Ticagrelor [Brilinta] 90 mg PO BID #60 tab 10/13/20 Following Prescriptions Were Given to Patient: Baclofen 10 mg PO TID PRN PRN #90 tab PRN Reason: Muscle Spasm Transmission Status: Received by [id number] Ticagrelor [Brilinta] 90 mg PO BID #60 tab Transmission Status: Received by [facility][id number] Amitriptyline HCl [Elavil] 25 mg PO QHS #60 tab Transmission Status: Received by [id number] Insulin Glargine [Lantus SoloStar Pen] 20 units SC QHS #5 pen Transmission Status: Received by [id number] Atorvastatin Calcium [Lipitor] 80 mg PO QHS #30 tab Transmission Status: Received by [facility][id number] Metoprolol Tartrate [Lopressor (beta aneta)] 12.5 mg PO BID #30 tab Transmission Status: Received by [facility][id number] Metformin HCl 500 mg PO BID #60 tab Transmission Status: Received by [facility][id number] Nitroglycerin 0.4 mg SL Q5M PRN #25 tab.sl PRN Reason: chest pain Transmission Status: Received by [id number] Pantoprazole Sodium [Protonix] 40 mg PO DAILY #30 tab Transmission Status: Received by [facility][id number] Lisinopril [Zestril] 10 mg PO DAILY #30 tab Transmission Status: Received by [facility][id number] Other Amb Orders: Phase II, Outpatient Cardiac Rehab Location: None Selected Primary Care Physician: Abdoulaye Sweet MD [Primary Care Provider] - Please follow up with your Primary Care Physician in: in 2 weeks Please Follow Up With: June from [facility] When: Please Follow Up With: Maria M Hernandez MD When: in one month-call for appointment Please Follow Up With: Your workman's comp physician When: to get referral to see Dr. Alejandre (pain management) Disposition: Home Minutes spent on discharge:: 31 Patient Condition:: Stable Medical Necessity - Tobacco Use Smoking Status: Current every day smoker Meaningful Use Info Meaningful Use Diagnoses (Choose all that apply): AMI - AMI/Post PCI/Angioplasty Aspirin given w/in 24hrs of arrival?: Yes ASA at discharge?: Yes Antiplatelet Therapy at Discharge:: Yes Statins at discharge?: Yes Jose R/ARB at discharge?: Yes Beta Aneta at discharge?: Yes Done w/ Acute NM measure.: Yes Documented LVEF (%): 55 Inpatient E&M: 01589 Disch Hosp
== END 2020-10-13 10:25 | disposition home or self-care (01) | DRG 247 ==
LOC: ED 09:15 → PCU 11:01
PROVIDERS: Admitting Provider Internal Medicine; Emergency Provider Emergency Medicine; PCP Family Medicine; Visit Provider Internal Medicine
DX: I21.4 Non-ST elevation (NSTEMI) myocardial infarction (principal); F11.23 Opioid dependence with withdrawal; E11.65 Type 2 diabetes mellitus with hyperglycemia; Z89.222 Acquired absence of left upper limb above elbow; F41.9 Anxiety disorder, unspecified; G89.29 Other chronic pain; F17.200 Nicotine dependence, unspecified, uncomplicated; Z91.14 Patient's other noncompliance with medication regimen; I25.10 Atherosclerotic heart disease of native coronary artery without angina pectoris; E78.5 Hyperlipidemia, unspecified
CPT/HCPCS: 36415; 71275; 80053; 80061; 80307; 82077; 82962; 83036; 83735; 84100; 84443; 84484; 85025; 92928; 93005; 93458; 99152; 99153; 99284; 99406; J7120; Q9967; C1725; C1769; C1874; C1887; C1894; C9600; J2405

== ENCOUNTER 2021-03-20 12:00 | Outpatient (RCR) | payer OTHER, SELFPAY ==
[2020-10-30 14:14] VITALS: BMI 28.7
--- NOTE | 2021-02-10 15:06 | HP.PTEVAL_ITS ---
Patient's Visit Information EARL NAZARIO is a 35 year old M referred to Physical Therapy by MORENO CARBAJAL with a diagnosis of COMPLETE TRAUMATIC AMPUTATION AT LEVEL BETWEEN L SHLD AND ELBOW. Date of Evaluation: 02/07/21 Physical Therapist: Aleta Jaffe, PT, Cert MDT - Visit Plan Frequency: 2x /Week Duration: 6 Weeks Plan: POSTURAL AND L SHOULDER ROM, STRETCHING AND STRENGTHENING TO HELP MEET SET GOALS. WRITTEN HEP. - Subjective Work/Leisure: [employer]. LAST WORKED NOVEMBER 2016. Disability: NO. Present symptoms: NECK, CHEST AND SHOULDER WEAKNESS. PAIN AT END OF STUMP AND PAINFUL NEUROMA'S THAT GROW AND HAVE BEEN CUT OUT. Present since: NOVEMBER 2016. Pain Scale: Worst - 10/10 Least - 5/10. Currently: 04/06. Commenced as a result of: GOT PULLED INTO TRUCK CHAIR WITH L UE. Worse: WEARING PROSTETIC ARM, L ARM MVMT, JARRING, CAR RIDES. Better: MEDICAL MARIJUANAS, LYRICA, MUSCLE RELAXER. Disturbed sleep: YES. Previous history/Previous treatment: PHYSICAL THERAPY AND OCCUPATIONAL THERAPY BUT STATES HE REALLY HASN'T HAD MUCH PT FOR HIS ARM. HAS HOME EX PROGRAM FROM LAST EPISODE OF CARE WITH OT AND STATES HE TRIES TO DO THEM. Gait: PATIENT DENIES ANY DIFFICULTY WALKING. Imaging: NONE RECENT. PMH/Recent major surgery: HEART ATTACK SEP 2020 - STENT AND BALLOON PLACEMENT AND REPORTS HE STILL HAS BLOCKAGE. IDDM. DEPRESSION. OTHER: AUG 2020 GOT PROSTHETIC ARM FOLLOWED BY OT BUT HAD A HEART ATTACK SEP 2020. PATIENT REPORTS HE HASN'T BEEN ABLE TO DO THINGS LIKE WASH HIS BACK, BUTTON HIS PANTS, CHANGE A TOLIET PAPER ROLL OR TIE HIS SHOES INDEP'LY SINCE HIS ACCIDENT. - Objective Sitting Posture/Standing Posture: POOR. FH. SH'S. Active Correction of posture: NE. Other Observations: THIS PATIENT AMBULATES INDEP'LY INTO PT WEARING A PROSTHETIC L ARM. HE IS PLEASANT AND COOPERATIVE TO WORK WITH. HE IS ABLE TO INDEP'LY TAKE HIS SHIRT OFF AND PUT IT BACK ON. HE IS ALSO ABLE TO INDEP'LY DON AND DOFF LEFT PROSTHETIC ARM. HE APPEARS HIGHLY MOTIVATED TO GET THE MOST OUT OF HIS NEW ARM BUT REPORTS IT IS PAINFUL TO WEAR IT AND TRY TO USE IT. HE SHOWS SIGNS OF AND VERBALIZES FRUSTRATION WITH NOT HAVING ENOUGH STRENGTH TO USE PROSTHESIS CORRECTLY. Motor deficit: WEAKNESS THROUGHOUT POSTURAL MUSCLES, LEFT CHEST AND L SHOULDER. Sensory deficit: ABNORMAL SENSATION L UE STUMP AND STUMP IS COLD TO THE TOUCH. ROM deficit: PATIENT IS ABLE TO FLEX AND ABD HIS LEFT SHOULDER ACTIVELY TO APPROX 95 DEG WITHOUT HIS PROSTHESIS ON BUT ROM IS MUCH MORE LIMITED WITH THE PROSTHESIS: FLEX 28 DEG, ABD 46 DEG. Postural strength: POOR. Palpation: UPON OBSERVATION THERE DO NOT APPEAR TO BE ANY OPEN AREAS ON HIS STUMP OR SIGNS OF INFECTION. OTHER: THIS PATIENT APPEARS TO BE A GOOD CANDIDATE FOR OCCUPATIONAL THERAPY AND OT WAS ORDERED BUT NOT ON HIS CURRENT C-9. PATIENT PLANS TO DISCUSS THIS WITH HIS DOCTOR. - Goals Goal 1:: INCREASE L UE FUNCTIONAL ROM TO EASE ADL'S Goal Time Frame: 4-6 Weeks Goal 2:: INCREASE L UE FUNCTIONAL STRENGTH TO EASE ADL'S Goal Time Frame: 4-6 Weeks Goal 3:: PATIENT WILL HAVE ENOUGH L UE STRENGTH TO INDEP'LY LOCK AND UNLOCK PROSTHESIS WITH L SHOULDER. Goal Time Frame: 4-6 Weeks Goal 4:: PATIENT WILL BE INDEP WITH A HEP FOR CONTINUED IMPROVEMENT ONCE FORMAL PHYSICAL THERAPY CONCLUDES. Goal Time Frame: 4-6 Weeks - Anticipated Interventions Patient/Client Instruction: Educate patient on: Condition, Plan of Care, Risk Factors For the Purpose of:: To improve self management Therapeutic Exercise to Include: Strength training, Postural training, Flexibilty training, Neuromotor development, Passive ROM, Active ROM, Scapular Strength/Stabilization For the Purpose of:: To decrease pain, To increase ROM, To improve muscle performance and motor function, To increase tolerance to activity/condition/position, To improve ability of physical actions for home/community/work/leisure Thank you for the opportunity to evaluate your patient. For Medicare and Medicare HMO plans, please review the plan of care and approve it. It will need to be FAXED BACK to us at [phone] for Medicare purposes. For Medicare only, by signing this I certify the plan of care. Please let me know if there are questions or concerns regarding this plan of care. Physician Signature: Date:
--- NOTE | 2021-03-20 15:55 | HP.PTDCSUM ---
It has been my pleasure to treat EARL NAZARIO referred by MORNEO CARBAJAL, with the diagnosis of COMPLETE TRAUMATIC AMPUTATION AT LEVEL BETWEEN L SHLD AND ELBOW for a total of 10 visit(s). Discharge Date: Please see the following information for a summary of their discharge status. Subjective: PATIENT REPORTS FOLLOW UP WITH DR. CARBAJAL IS PENDING SOON BUT NOT SURE OF DATE. PATIENT REPROTS THERAPY IS HELPING. STATES IT IS STRENGTHENING HIS SHLD BUT THE PAIN IS STILL THERE. NO CHANGE IN PAIN. NO BETTER AND NO WORSE IN TERMS OF PAIN OVER-ALL SINCE STARTING THERAPY. 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 PATIENT REPORTS HE IS DOING HIS HEP AND IT IS CHALLENGING. PATIENT REPORTS HE DOESN'T FEEL LIKE THERAPY IS GOING TO HELP ANYMORE UNTIL THEY GET SOMETHING FIGURED OUT TO HELP THE NERVE ENDINGS THAT ARE GIVING HIM SO MUCH PAIN. ALSO LESLIE'T PENDING FOR ANOTHER SURGERY TO REMOVE NEUROMAS AND BURN OR SHORTEN N ENDINGS. HE REPORTS THAT HE HAD TO LET A CERTAIN AMT OF TIME PASS BETWEEN HIS HEART ATTACK AND STOPPING MEDICATIONS BEFORE CONSIDERING ANOTHER SURGERY. PATIENT STATES HE WOULD LIKE TO GO BACK TO OT TO WORK MORE ON THINGS HE STARTED BEFORE HIS HEART ATTACK LIKE HOW TO HOLD A GALINDO IN THE KITCHEN AND USING PROSTHESIS TO STABILIZE THINGS IN THE KITCHEN WHILE HE USES HIS OTHER ARM. STATES HE FELT SOMETHING POP IN THIS STUMP FOR NO APPARENT REASON LAST WEEK AND THEN A BRUISE APPEARED. STATES IT WAS ABOUT NOON THURSDAY LAST WEEK AND ABLE TO DO PT THURSDAY. left shoulder Pain Intensity (Out of 10): Unrated % Improvement: 10 Objective/Function: PATIENT WAS SEEN TODAY FOR RE-ASSESSMENT OF PROGRESS TOWARD THE SET PT GOALS AND THE NEED FOR FURTHER PHYSICAL THERAPY VS READINESS FOR DISCHARGE. PATIENT DOES APPEAR TO BE A GOOD CANDIDATE FOR OCCUPATIONAL THERAPY. HE IS INDEP WITH A LD EX PROGRAM AND WOULD LIKE TO BE D/C'D FROM PT AT THIS TIME BUT MAY BENEFIT FROM AND BE MORE WILL TO DO FURTHER PT AFTER SURGERY. UPON EXAM TODAY: PATIENT DOES HAVE AN APPROX 3 INCH CIRCULAR BRUISE ON HIS STUMP BUT HIS AROM INTO SHLD FLEX AND ABD HAS IMPROVED SINCE INITIAL EVAL. AROM WITH PROSTHERSIS OFF INTO FLEX = 100 DEG, ABD 123 DEG. AROM WITH PROSTHERSIS ON INTO FLEX = 43 DEG, ABD 61 DEG. IT IS STILL DIFFICULT AND PAINFUL FOR PATIENT TO LOCK AND UNLOCK PROSTHESIS. ENCOURAGED PATIENT TO FOLLOW UP WITH DR. CARBAJAL AND SURGEON AND DISCUSS BEST TIMING FOR FURTHER PT. Goal 1:: INCREASE L UE FUNCTIONAL ROM TO EASE ADL'S Goal Progress: Progressing Goal 2:: INCREASE L UE FUNCTIONAL STRENGTH TO EASE ADL'S Goal Progress: Progressing Goal 3:: PATIENT WILL HAVE ENOUGH L UE STRENGTH TO INDEP'LY LOCK AND UNLOCK PROSTHESIS WITH L SHOULDER. Goal Progress: Progressing Goal 4:: PATIENT WILL BE INDEP WITH A HEP FOR CONTINUED IMPROVEMENT ONCE FORMAL PHYSICAL THERAPY CONCLUDES. Goal Progress: Progressing Plan: D/C TO HEP AT THIS TIME. If there are questions or concerns regarding this patient's physical therapy, please feel free to call me at [phone]. Thank you for the referral of this patient. Sincerely, Aleta Jaffe, PT, Cert MDT
== END 2021-03-20 19:00 | disposition home or self-care (01) ==
LOC: PT 12:00
PROVIDERS: PCP Family Medicine
DX: S48.11 Complete traumatic amputation at level between shoulder and elbow (principal)
CPT/HCPCS: 97110; 97162; 97164; 97530

== ENCOUNTER 2021-06-20 13:00 | Outpatient (RCR) | payer OTHER, SELFPAY ==
--- NOTE | 2021-05-24 09:15 | HP.OTEVAL_ITS ---
Patient's Visit Information EARL NAZARIO is a 36 year old M, referred to Occupational Therapy by MORENO CARBAJAL, with a diagnosis of L Complete bionic amputation. Date of Evaluation: 05/22/21 Occupational Therapist: Lona Balbuena, OTR/Bne, CHT - Subjective This 34 year old male was seen for OT eval with dx of a left above elbow amputation. pt states with the amputation he has had issues with sensitivity on and around the stump and down arm. pt accident was 3 years. [employer] when his arm was dethatched. pt states when he initially had accident pt went through therapy with some mirror therapy, estim but pain continues to bother him. With new prosthetic, pt has reported issued doing ADLs and IADLs, carrying/picking up objects, opening doors, and holding other various objects around the house. Pt stated that he has gotten a home paraffin device and that is helping a lot. - Pain L amputation site 3 Pain Intensity Range: 3, 7 - Objective When opening a hook handled door, pt attempted 4 times before opening the door. When picking up 3# weight, it took pt 3 trials to pick the weight up off of the floor. When picking up different size toys, it took 5 trials to draft roller picker each toy (3 toys). He used his whole body when opening the door and bent close to the floor at an odd angle to draft roller picker the toys/weight from the floor. - ROM Shoulder: R: WFL, L:50*/130* - Strength Shoulder: R: 5/5, L: 4/5 - Quick DASH-Disab of Arm,Shoulder& Hand Quick DASH Score: 68.1800 - Goals Goal:: Pt will demo a increase in MMT to left UE 4+/5 to increase use of left Prosthetic arm for ADLS by d/c Goal:: pt will report left AEA pain no greater than 3/10 with use of prosthetic arm for ADls by d/c Goal:: Pt will demonstrate a decrease in full body compensation while opening doors and picking up objects by d/c. pt will demo the ability to open lever handle door on first try 5/5 trials. Goal:: pt will demo understanding of home modification ie door handles, pull handles on cabinets etc. to increase pts ind. with ADls - Rehabilitation General Assessment: Pt demonstrated limited use of prosthetic to open doors, draft roller picker objects, and an increase in full body compensation when attempting to use prosthetic. Pt would benefit from skilled OT services 2x a week for 6 weeks to improve independent use of prosthetic w/o full body compensation techniques. Today, therapist assessed pt's ability to transfer objects from floor to desk, from desk to floor, and picking up plastic buckets from the floor. Pt was advised to seek further adaptions to prosthetic to increase independence. Pt agreed will contact [employer] with concerns of limited use with of left UE as assistive devise with ADLs and IADls. pt demo understanding of POC. Rehabilitation Potential: Fair - Anticipated Interventions Orthoses, ADL Training, Home Program - Visit Plan Frequency: 2x /Week Duration: 6 Weeks General Plan: Continue challenging prosthetics w/ differing sizes objects and levels or heights to gain increase functional use of left UE without compensatory cinthia. TEXT: Thank you for the opportunity to evaluate your patient. For Medicare and Medicare HMO plans, please review the plan of care and approve it. It will need to be FAXED BACK to us at [phone] for Medicare purposes. Please let me know if there are questions or concerns regarding this plan of care. Physician Signature: Date:
--- NOTE | 2021-06-21 08:45 | HP.OTDCSUM ---
It has been my pleasure to treat EARL NAZARIO under orders from MORENO CARBAJAL, for the diagnosis of L Complete bionic amputation for a total of 7 visit(s). Please see the following information for a summary of their discharge status. Objective/Function: pt demo with significant body compensation to get prosthetic to function- therapist has challenged pt with a variety of functional tasks from different levels as picking small objects up off floor, chair height, table top height and counter top height- to open cabinet doors with prosthetic pt almost has to have his chest touching the cabinet to get a engineering specialist technician and release of the pull handle. pt is unable to open prosthetic hand to machine operator hop picker a tennis ball ( approximately 2.5 inches wide). to pick objects off floor pt also demo sig. compensation and body contours to get prosthetic devices to work-. pts mobility to fluidly use prosthetic devices is poor and non functional at this time-- question if a different device would be more successful in pt achieving a prosthetic limb functioning at a more functional level. Advised pt to return to [facility] for further assessment. Patient Goals: Decrease Pain, Be More Independent in ADLS Goal:: Pt will demo a increase in MMT to left UE 4+/5 to increase use of left Prosthetic arm for ADLS by d/c Goal:: pt will report left AEA pain no greater than 3/10 with use of prosthetic arm for ADls by d/c Goal:: Pt will demonstrate a decrease in full body compensation while opening doors and picking up objects by d/c. pt will demo the ability to open lever handle door on first try 5/5 trials. Goal:: pt will demo understanding of home modification ie door handles, pull handles on cabinets etc. to increase pts ind. with ADls Plan: cont with functional use tasks to best of ability Discharge Comments: pt was seen for 7/12 visits -. pt adaption to prosthetic device is poor- pt has to use entire body to compensate and contour his body in a non functional movement patterns. Advised pt to return to [facility] for further guidance or possible different device. Therapist encouraged pt to cont. using device as able for daily tasks - pt agree If there are questions or concerns regarding this patient's occupational therapy, please fell free to call me at [phone]. Thank you for the referral of this patient. Sincerely, Lona Balbuena OTR/Ben, CHT
== END 2021-06-20 19:00 | disposition home or self-care (01) ==
LOC: OT 13:00
PROVIDERS: PCP Family Medicine
DX: S48.11 Complete traumatic amputation at level between shoulder and elbow (principal); X58.XXXD Exposure to other specified factors, subsequent encounter; Y99.0 Civilian activity done for income or pay
CPT/HCPCS: 97165; 97530

== ENCOUNTER → 2021-07-03 11:41 | Outpatient (CLI) | payer OTHER, SELFPAY ==
[2021-07-03 15:57] LABS: AST(SGOT) 22 U/L (15-37); Alanine Aminotransfer ALT/SGPT 61 U/L (16-61); Albumin, Serum 3.6 g/dL (3.2-5.0); Alkaline Phosphatase 126 U/L (45-117); Anion Gap 9 (5-15); BUN 7 mg/dL (7-18); BUN/Creat Ratio 10.4 RATIO (10-20); Calcium,Total 8.9 mg/dL (8.5-10.1); Chloride 106 mmol/L (98-107); Cholesterol 111 mg/dL (200); Creatinine, Serum 0.67 mg/dL (0.70-1.30); EST Glomerular Filtration Rate 142 mL/min (>60); Est Glom Filt Rate - Afr Amer 171 mL/min (>60); Globulin 3.6 g/dL (2.2-4.2); Glucose 158 mg/dL (74-106); High Density Lipoprotein 26 mg/dL; Potassium 3.9 mmol/L (3.5-5.1); Protein, Total 7.2 g/dL (6.4-8.2); Sodium Level 139 mmol/L (136-145); Thyroid Stim Hormone (TSH) 1.37 uIU/mL (0.358-3.74); Triglycerides 164 mg/dL; Very Low Density Lipoprotein 33 mg/dL (5-40)
== END ==
PROVIDERS: PCP Family Medicine; Referring Provider Family Medicine; Visit Provider Family Medicine
DX: E11.9 Type 2 diabetes mellitus without complications (principal)
CPT/HCPCS: 36415; 80053; 80061; 84443

== ENCOUNTER 2021-10-09 12:09 | Outpatient (CLI) | payer OTHER, SELFPAY ==
[2021-10-09 15:30] LABS: Erythrocyte Sedimentation Rate 9 mm/hr (0-20); Hematocrit 49.2 % (40-54); Hemoglobin 16.7 g/dL (13.0-16.5); Mean Corp Hgb Conc 33.9 g/dL (32-36); Mean Corpuscular Hgb 29.2 pg (27.0-32.0); Mean Corpuscular Volume 86.2 fL (80-94); Mean Platelet Vol. 10.7 fl (6.2-12.0); Platelet Count 279 K/mm3 (150-450); RBC Distribution Width CV 13.2 % (11.6-14.6); RBC Distribution Width SD 41.1 fl (35.1-43.9); Red Blood Count 5.71 M/mm3 (4.6-6.2); White Blood Count 11.8 K/mm3 (4.4-11.0)
[2021-10-09 15:39] LABS: Vitamin B12 292 pg/mL (211-911); Vitamin D,25 Hydroxy 18.8 ng/mL
[2021-10-09 15:44] LABS: Anion Gap 8 (5-15); BUN 11 mg/dL (7-18); BUN/Creat Ratio 19.5 RATIO (10-20); Calcium,Total 8.8 mg/dL (8.5-10.1); Chloride 108 mmol/L (98-107); Creatinine, Serum 0.56 mg/dL (0.70-1.30); EST Glomerular Filtration Rate 173 mL/min (>60); Est Glom Filt Rate - Afr Amer 209 mL/min (>60); Ferritin 145 ng/mL (26-388); Glucose 161 mg/dL (74-106); Magnesium 2.6 mg/dL (1.6-2.6); Potassium 3.9 mmol/L (3.5-5.1); Sodium Level 141 mmol/L (136-145); Thyroid Stim Hormone (TSH) 2.23 uIU/mL (0.358-3.74)
== END 2021-10-09 23:59 | disposition short-term general hospital (02) ==
LOC: MFPLAB 12:10
PROVIDERS: PCP Family Medicine; Referring Provider Family Medicine; Visit Provider Family Medicine
DX: E11.42 Type 2 diabetes mellitus with diabetic polyneuropathy (principal)
CPT/HCPCS: 36415; 80048; 82306; 82607; 82728; 83735; 84443; 85027; 85652

== ENCOUNTER 2021-10-30 13:56 | Outpatient (CLI) | payer OTHER, SELFPAY ==
--- NOTE | 2021-10-30 14:03 | ECHOCS_ITS ---
Reason For Study: CAD/ASHD Procedure This was a 2D Doppler, Color Flow transthoracic echocardiogram. Contrast injection was performed. Exam performed in department. Left Ventricle Normal LV size. Left ventricular systolic function is normal. The estimated ejection fraction is 65 %. Normal diastology for age. No regional wall motion abnormalities noted. Right Ventricle Normal RV size. Normal systolic function. Atria Normal left atrium. Normal right atrium. Mitral Valve Normal mitral valve. Tricuspid Valve Normal tricuspid valve. Aortic Valve Normal aortic valve. Trisinus/trileaflet aortic valve. Pulmonic Valve Normal pulmonic valve. Great Vessels Normal aortic root. The pulmonary artery is normal size. Normal inferior vena cava. Pericardium/Pleural No pericardial effusion. Medication Diluted definity 3ml given slow IV push to enhance endocardial definition. MMode/2D Measurements & Calculations LVIDd: 4.7 cm IVSd: 0.95 cm Ao root diam: 2.8 cm LVIDs: 2.6 cm LVPWd: 0.94 cm RVDd: 2.9 cm FS: 43.7 % LAV(MOD-bp): 24.2 ml LVAd ap4: 36.2 cm2 SV(MOD-sp4): 68.9 ml LAV(MOD-bp) Indexed: 11.7 ml/m2 LVLd ap4: 8.8 cm LAV(MOD-sp2): 20.5 ml EDV(MOD-sp4): 125.4 ml LAV(MOD-sp4): 24.3 ml EDV(sp4-el): 126.8 ml LVAs ap4: 21.8 cm2 LVLs ap4: 7.2 cm ESV(MOD-sp4): 56.5 ml ESV(sp4-el): 55.7 ml EF(MOD-sp4): 55.0 % EF(sp4-el): 56.0 % SV(sp4-el): 71.1 ml LA A4 area: 12.1 cm2 LA dimension(2D): 3.6 cm RA A4 area: 8.6 cm2 Doppler Measurements & Calculations MV E max jhonny: 65.4 cm/sec Lat Peak E' Jhonny: 10.2 cm/sec Med Peak E' Jhonny: 8.9 cm/sec MV A max jhonny: 51.4 cm/sec E/E' lat: 6.4 E/E' med: 7.3 MV E/A: 1.3 Ao V2 max: 105.2 cm/sec LV V1 max: 95.1 cm/sec PA V2 max: 104.2 cm/sec Ao max P.4 mmHg LV V1 max P.6 mmHg Ao V2 mean: 77.5 cm/sec Ao mean P.6 mmHg Ao V2 VTI: 18.0 cm ECHO/Echo Complete W/ Contrast Interpretation Summary Normal LV size. Left ventricular systolic function is normal. The estimated ejection fraction is 65 %. Normal diastology for age. Contrast injection was performed. Ordering Physician: Mohinder Ennis Referring Physician: Neo Sweet Performed By: Shirley Man, DERICK, RVT
== END 2021-10-30 23:59 | disposition short-term general hospital (02) ==
PROVIDERS: PCP Family Medicine; Visit Provider Internal Medicine Cardiovascular Disease
DX: I25.10 Atherosclerotic heart disease of native coronary artery without angina pectoris (principal); Z95.5 Presence of coronary angioplasty implant and graft
CPT/HCPCS: 93306; Q9957; A4216; C8929

== ENCOUNTER → 2022-05-23 | Outpatient (CLI) | payer OTHER, SELFPAY ==
[2022-05-23 15:09] LABS: Absolute Lymphocyte Count 2.14 X10^3/uL (0.83-4.51); Absolute Neutrophil Count 7.4 X10^3/uL (2.0-7.7); Basophil# 0.02 X10^3/uL; Basophil% 0.2 % (0-1); Eosinophil# 0.33 X10^3/uL; Eosinophils% 3.1 % (0-5); Hematocrit 47.3 % (40-54); Hemoglobin 16.1 g/dL (13.0-16.5); Lymphocyte # 2.14 X10^3/ul (0.83-4.51); Lymphocyte % 20.3 % (19-41); Mean Corpuscular Hgb 29.9 pg (27.0-32.0); Mean Corpuscular Volume 87.9 fL (80-94); Monocyte# 0.64 X10^3/uL; Monocyte% 6.1 % (0-10); NRBC Flagged by Analyzer 0 % (0-5); Neutrophil # 7.39 X10^3/uL (2.7-7.7); Neutrophil % 69.9 % (47-70); Platelet Count 256 K/mm3 (150-450); RBC Distribution Width SD 41.5 fl (35.1-43.9); Red Blood Count 5.38 M/mm3 (4.6-6.2); White Blood Count 10.6 K/mm3 (4.4-11.0)
[2022-05-23 15:13] LABS: Vitamin B12 284 pg/mL (211-911); Vitamin D,25 Hydroxy 25.8 ng/mL
[2022-05-23 15:14] LABS: Erythrocyte Sedimentation Rate 5 mm/hr (0-20)
[2022-05-23 15:28] LABS: ALB/GLOB Ratio 1.2 RATIO (0.9-2.4); AST(SGOT) 21 U/L (15-37); Alanine Aminotransfer ALT/SGPT 45 U/L (16-61); Albumin, Serum 3.8 g/dL (3.2-5.0); Alkaline Phosphatase 106 U/L (45-117); Anion Gap 6 (5-15); BUN 6 mg/dL (7-18); BUN/Creat Ratio 8.3 RATIO (10-20); Calcium,Total 8.4 mg/dL (8.5-10.1); Chloride 105 mmol/L (98-107); Creatinine, Serum 0.72 mg/dL (0.70-1.30); EST Glomerular Filtration Rate 130 mL/min (>60); Est Glom Filt Rate - Afr Amer 157 mL/min (>60); Ferritin 95 ng/mL (26-388); Globulin 3.3 g/dL (2.2-4.2); Glucose 194 mg/dL (74-106); Iron 89 ug/dL (65-175); Magnesium 2.1 mg/dL (1.6-2.6); Potassium 3.8 mmol/L (3.5-5.1); Protein, Total 7.1 g/dL (6.4-8.2); Sodium Level 137 mmol/L (136-145); Thyroid Stim Hormone (TSH) 1.39 uIU/mL (0.358-3.74)
[2022-05-27 18:09] LABS: ANTINUCLEAR ANTIBODIES DIRECT Negative (Negative)
== END | disposition home or self-care (01) ==
PROVIDERS: PCP Family Medicine; Referring Provider Family Medicine; Visit Provider Family Medicine
DX: G62.9 Polyneuropathy, unspecified (principal); E53.8 Deficiency of other specified B group vitamins
CPT/HCPCS: 36415; 80053; 82306; 82607; 82728; 82746; 83540; 83735; 84443; 85025; 85652; 86038

== ENCOUNTER → 2022-07-17 | Outpatient (CLI) | payer OTHER, SELFPAY ==
--- NOTE | 2022-07-17 13:20 | ART_ITS ---
Reason For Study: DM / Neuropathy Procedure A bilateral lower extremity continuous wave Doppler with analog waveform analysis and ankle brachial indexes. Left Segmental Pressures Unable to obtain brachial due to amputation. Left posterior tibial artery = 135mmHg. Left dorsalis pedis artery = 138mmHg. Left digit = 107 mmHg. The left posterior tibial artery waveforms are triphasic. The left dorsalis pedis waveforms are triphasic. Right Segmental Pressures Right brachial= 118mmHg. Right posterior tibial artery = 141mmHg. Right dorsalis pedis artery = 124mmHg. Right digit = 118 mmHg. The right posterior tibial artery waveforms are triphasic. The right dorsalis pedis waveforms are triphasic. Indices The right ankle brachial index by the posterior tibial artery is 1.19. The right ankle brachial index by the dorsalis pedis is 1.05. The right digital-brachial index is 1.00. The left ankle brachial index by the posterior tibial artery is 1.14. The left ankle brachial index by the dorsalis pedis is 1.17. The left digital-brachial index is 0.91. VL/Ankle Brachial Index Interpretation Summary Triphasic Doppler waveforms are noted at ankle level bilaterally. Pulse-volume recordings appear satisfactory at ankle and digital levels bilaterally. Resting ankle-brachial in dices are normal bilaterally. Digital-brachial indices are normal bilaterally. There is no evidence of significant arterial occlusive disease in the lower ext remities bilaterally. Ordering Physician: Abdoulaye Smart Referring Physician: ORVILLE SMART MD Performed By: Lee Arauz, RVT
== END | disposition home or self-care (01) ==
LOC: CVS 13:17
PROVIDERS: PCP Family Medicine; Referring Provider Family Medicine; Visit Provider Family Medicine
DX: E11.40 Type 2 diabetes mellitus with diabetic neuropathy, unspecified (principal)
CPT/HCPCS: 93922

== ENCOUNTER → 2022-12-19 | Outpatient (CLI) | payer OTHER, SELFPAY ==
[2022-12-19 15:33] LABS: ALB/GLOB Ratio 1.2 RATIO (0.9-2.4); AST(SGOT) 27 U/L (15-37); Alanine Aminotransfer ALT/SGPT 56 U/L (16-61); Albumin, Serum 3.6 g/dL (3.2-5.0); Alkaline Phosphatase 107 U/L (45-117); Anion Gap 5 (5-15); BUN 7 mg/dL (7-18); BUN/Creat Ratio 11.2 RATIO (10-20); Calcium,Total 8.7 mg/dL (8.5-10.1); Chloride 107 mmol/L (98-107); Cholesterol 111 mg/dL (200); Creatinine, Serum 0.63 mg/dL (0.70-1.30); EST Glomerular Filtration Rate 152 mL/min (>60); Est Glom Filt Rate - Afr Amer 184 mL/min (>60); Glucose 229 mg/dL (74-106); High Density Lipoprotein 28 mg/dL; Potassium 3.8 mmol/L (3.5-5.1); Protein, Total 6.6 g/dL (6.4-8.2); Sodium Level 137 mmol/L (136-145); Triglycerides 225 mg/dL; Very Low Density Lipoprotein 45 mg/dL (5-40); Vitamin B12 576 pg/mL (211-911); Vitamin D,25 Hydroxy 33.5 ng/mL
== END | disposition home or self-care (01) ==
LOC: MFPLAB 12:19
PROVIDERS: PCP Family Medicine; Visit Provider Family Medicine
DX: E11.9 Type 2 diabetes mellitus without complications (principal); E55.9 Vitamin D deficiency, unspecified
CPT/HCPCS: 36415; 80053; 80061; 82306; 82607

== ENCOUNTER 2023-05-07 20:19 | Emergency (ER) | payer OTHER, SELFPAY ==
[2023-05-07 20:20] VITALS: BP 135/84; PULSE 81; RESP 18; TEMP 36.9; O2SAT 95; BMI 26.4
--- NOTE | 2023-05-07 20:59 | EDS_ITS ---
HPI <REESE Yates - Last Filed: 05/07/23 22:21> History of Present Illness Chief Complaint: Foreign Body Narrative Narrative: Patient presenting today with concerns that he could have a turkey bone stuck in his throat. He reports that he was eating turkey breast for dinner when he felt a sharp sensation in his throat and had to stop eating. He reports that he is able to tolerate secretions and can drink fluids without difficulty. He denies any shortness of breath or chest pain. PFS <REESE Yates - Last Filed: 05/07/23 22:21> [facility] Medical History Acute bronchitis, unspecified Acute maxillary sinusitis, unspecified Anomalous coronary artery origin Anxiety Atherosclerosis of coronary artery of [place] heart without angina pectoris Chronic pain after traumatic injury Diabetes mellitus History of non-ST elevation myocardial infarction (NSTEMI) (10/11/20) Hyperlipidemia Opiate addiction Opiate withdrawal (10/11/20) Home Medications amitriptyline 25 mg tablet 25 mg PO QHS #60 tabs 10/13/20 [Rx Last Taken Unknown] baclofen 10 mg tablet 10 mg PO BID PRN Muscle Spasm 03/28/21 [History Last Taken Unknown] dulaglutide 1.5 mg/0.5 mL subcutaneous pen injector 1.5 mg subcut QWEEK 03/28/21 [History Last Taken Unknown] metformin 1,000 mg tablet 1,000 mg PO BID 03/28/21 [History Last Taken Unknown] nitroglycerin 0.4 mg sublingual tablet 0.4 mg sublingual Q5M PRN chest pain ##25 03/28/21 [Rx Last Taken Unknown] pregabalin 150 mg capsule 150 mg PO BID 03/28/21 [History Last Taken Unknown] topiramate 50 mg tablet 50 mg PO DAILY 03/28/21 [History Last Taken Unknown] aspirin 81 mg tablet,delayed release 81 mg PO DAILY@0800 10/15/21 [History Last Taken Unknown] lisinopril 10 mg tablet 10 mg PO DAILY #90 tabs 10/15/21 [Rx Last Taken Unknown] metoprolol tartrate 25 mg tablet 12.5 mg (1/2 x 25 mg) PO BID #45 tabs 10/15/21 [Rx Last Taken Unknown] amoxicillin 875 mg-potassium clavulanate 125 mg tablet 1 tab PO BID #20 tabs 09/10/22 [Rx Last Taken Unknown] atorvastatin 80 mg tablet 80 mg PO QHS #90 tabs 10/06/22 [Rx Last Taken Unknown] Allergy/AdvReac Type Severity Reaction Status Date / Time adhesive tape Allergy Rash Verified 10/06/22 11:10 Family History Father CAD (coronary artery disease) Diabetes Mother COPD (chronic obstructive pulmonary disease) Surgical History 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) History of coronary artery stent placement (10/12/20) Rotator cuff arthropathy Social History Smoking Status: Light Smoker (<10/day) alcohol intake: never substance use type: does not use caffeine: Yes Type: carbonated beverages ROS <REESE Yates - Last Filed: 05/07/23 22:21> ROS ED Constitutional Constitutional ED: Denies chills or fever(s) Cardiovascular Cardiovascular: Denies chest pain Respiratory/Chest Respiratory/Chest: Denies cough or dyspnea Gastrointestinal Gastrointestinal: Denies abdominal pain, nausea or vomiting Musculoskeletal Musculoskeletal: Denies arthralgias or myalgias Neurologic Neurologic: Denies weakness Allergic/Immunologic Allergic/Immunologic ED: Denies mouth swelling or tongue swelling EXAM <REESE Yates - Last Filed: 05/07/23 22:21> Physical Exam Const Vital Signs: 05/07/23 20:20 05/07/23 20:20 Temperature 98.4 F Temperature Source Temporal Pulse Rate 81 Respiratory Rate 18 Respiratory Effort Normal Non-Labored Respiratory Pattern Normal Blood Pressure 135/84 H Blood Pressure Mean 101 Pulse Ox 95 Oxygen Delivery Method Room Air Positive well nourished, well developed and no apparent distress General Appearance ED: well developed HEENT Reports normocephalic and head/scalp atraumatic HEENT Narrative: Uvula midline, no erythema to the posterior pharynx, no tonsillar exudate, no dysphonia, tolerating secretions. Mouth ED: Yes moist mucous membranes normal Eyes PERRL and EOMs intact bilaterally Neck full ROM and supple Chest Wall inspection of chest normal Resp normal respiratory effort and clear to auscultation bilaterally Cardio regular rate and regular rhythm GI soft to palpation, non-tender, non-distended and no masses Back/Spine normal ROM and normal to inspection Extremity normal to inspection and full ROM Neuro oriented x3, CN's II-XII intact bilaterally, moves all extremities, no focal motor deficits and no sensory deficits noted Sensorium / Orientation: awake and alert Psych mental status grossly normal and thought process normal Skin no rashes or lesions noted and no wounds <Dr. Steven Vivas DO - Last Filed: 05/13/23 08:35> Physical Exam Const Vital Signs: 05/07/23 20:20 05/07/23 20:20 Temperature 98.4 F Temperature Source Temporal Pulse Rate 81 Respiratory Rate 18 Respiratory Effort Normal Non-Labored Respiratory Pattern Normal Blood Pressure 135/84 H Blood Pressure Mean 101 Pulse Ox 95 Oxygen Delivery Method Room Air MDM <Reena Bhagat PA - Last Filed: 05/07/23 22:21> [facility] MDM Narrative Medical decision making narrative: Patient presenting with concerns that he swallowed a turkey bone during dinner this evening. He is tolerating secretions, he does not report any chest pain or shortness of breath. There is no stridor or neck mass. Soft tissue x-ray of the neck will be obtained to rule out foreign body and is negative. Patient was told he likely has an abrasion to his esophagus. He is to follow-up with his PCP and has been given return instructions. He will be discharged in stable condition and is comfortable with plan. This patient was seen with a PA/ASSET CARD CLERK Individually assessed they patient including history and physical. I have reviewed everything on the chart that is available and agree with the documentation provided by the PA/ASSET CARD CLERK including discussion about the assessment, treatment plan, discussion, and return precautions. Patient seen and evaluated for foreign body sensation in throat. No stridor is noted. There is no palpable mass. Patient does not have any trouble swallowing or breathing. We did obtain an x-ray of the soft tissue of the neck and this was negative for acute findings on my interpretation. Patient counseled he likely has an abrasion in the esophagus. Symptoms have improved. Return precautions discussed. Radiography X-Ray: Read by ED Physician and Read by Radiologist Diagnostic Testing: Clinical Impression(s) from Imaging Studies Soft Tissue Neck X-Ray 05/07/23 21:09 IMPRESSION: Normal x-ray soft tissue neck. Electronically Signed: Gustavo Coleman MD at 21:35 EDT , <Dr. Steven Vivas, DO - Last Filed: 05/13/23 08:35> [facility] Narrative Medical decision making narrative: Patient presenting with concerns that he swallowed a turkey bone during dinner this evening. He is tolerating secretions, he does not report any chest pain or shortness of breath. Soft tissue x-ray of the neck will be obtained to rule out foreign body. This patient was seen with a PA/ASSET CARD CLERK Individually assessed they patient including history and physical. I have reviewed everything on the chart that is available and agree with the documentation provided by the PA/ASSET CARD CLERK including discussion about the assessment, treatment plan, discussion, and return precautions. Patient seen and evaluated for foreign body sensation in throat. No stridor is noted. There is no palpable mass. Patient does not have any trouble swallowing or breathing. We did obtain an x-ray of the soft tissue of the neck and this was negative for acute findings on my interpretation. Patient counseled he likely has an abrasion in the esophagus. Symptoms have improved. Return precautions discussed. Radiography Diagnostic Testing: Clinical Impression(s) from Imaging Studies Soft Tissue Neck X-Ray 05/07/23 21:09 IMPRESSION: Normal x-ray soft tissue neck. Electronically Signed: Gustavo Coleman MD at 21:35 EDT , Discharge Plan Triage Chief Complaint: Foreign Body ED Midlevel Provider: Reena Bhagat ED Provider: Steven Vivas Dx/Rx/DC Orders Clinical Impression: Pain in throat, Esophageal abrasion Instructions: When You Have a Sore Throat Prescriptions: No Action baclofen 10 mg tablet 10 mg PO BID PRN (Reason: Muscle Spasm) metformin 1,000 mg tablet 1,000 mg PO BID pregabalin 150 mg capsule 150 mg PO BID Patient Comments: TAKE 1 CAPSULE BY MOUTH TWICE A DAY topiramate 50 mg tablet 50 mg PO DAILY Patient Comments: TAKE 1 TABLET BY MOUTH EVERY DAY AT BEDTIME FOR 30 DAYS Trulicity 1.5 mg/0.5 mL pen injector 1.5 mg subcut QWEEK Patient Comments: INJECT 1 PEN DIRECTED WEEKLY nitroglycerin 0.4 mg tablet, sublingual 0.4 mg sublingual Q5M PRN (Reason: chest pain) Qty: 25 6RF Rx Instructions: Dissolve 1 tablet under tongue every 5 minutes up to 3 times as needed for chest pain. aspirin 81 mg tablet,delayed release (DR/EC) 81 mg PO DAILY@0800 lisinopril 10 mg tablet 10 mg PO DAILY Qty: 90 3RF metoprolol tartrate 25 mg tablet 12.5 mg PO BID Qty: 45 3RF atorvastatin 80 mg tablet 80 mg PO QHS Qty: 90 3RF amoxicillin-pot clavulanate 875-125 mg tablet 1 tab PO BID Qty: 20 0RF amitriptyline 25 MG tablet 25 mg PO QHS Qty: 60 0RF Rx Instructions: one at bedtime for one week, then increase to two at bedtime Primary Care Provider: Abdoulaye Sweet Referrals: Abdoulaye Sweet MD [Primary Care Provider] - 3-5 Days Activity Restrictions/Additional Instructions: Please follow-up with your PCP and return for any worsening of your symptoms. Disposition Disposition: Home, Self Care Discharge Date/Time: 05/07/23 21:56
--- NOTE | 2023-05-07 21:09 | RAD_ITS ---
STUDY: X-RAY - SOFT TISSUE NECK REASON FOR EXAM: Male, 37 years old. foreign body TECHNIQUE: 2 view(s) of the neck were obtained. COMPARISON: None. FINDINGS: Normal visualized nasopharynx, oropharynx, hypopharynx. Normal epiglottis. Normal visualized subglottic tracheal air column. Normal prevertebral soft tissue structures. Normal visualized osseous structures. The soft tissue structures are unremarkable. No radiopaque foreign bodies are seen. RAD/Neck for Soft Tissue IMPRESSION: Normal x-ray soft tissue neck. Electronically Signed: Gustavo Coleman MD at 21:35 EDT ,
== END 2023-05-07 21:56 | disposition home or self-care (01) ==
PROVIDERS: Emergency Provider Student in an Organized Health Care Education/Training Program; PCP Family Medicine; Visit Provider Student in an Organized Health Care Education/Training Program
DX: S10.11XA Abrasion of throat, initial encounter (principal); R07.0 Pain in throat; I25.10 Atherosclerotic heart disease of native coronary artery without angina pectoris; F17.200 Nicotine dependence, unspecified, uncomplicated; Z95.5 Presence of coronary angioplasty implant and graft; X58.XXXA Exposure to other specified factors, initial encounter
CPT/HCPCS: 70360; 99282

== ENCOUNTER → 2024-02-29 | Outpatient (CLI) | payer OTHER, SELFPAY ==
--- NOTE | 2024-02-29 11:13 | STRESSREP ---
Stress Test Report Exercise stress test. 38-year-old man with a history of coronary artery disease Stress protocol: Resting EKG demonstrates normal sinus rhythm with a rate of 80 bpm resting blood pressure is 118/76 mmHg. The patient exercised according to the regular Anthony protocol for a total duration of 9 minutes and 18 seconds minutes attaining a maximum heart rate of 155 bpm which was 85% of maximum predicted heart rate; the maximum workload was 11 METS metabolic equivalents. At rest there were no ST or T wave changes noted to suggest ischemia and at peak exercise upsloping ST changes only were noted which did not meet the criteria for ischemia. No clinical angina was noted the test was terminated due to the target heart rate being achieved/fatigue. The peak blood pressure was 162/68 mmHg. Rate-pressure product was 24,000. Conclusion: Exercise stress test with no EKG criteria for ischemia at a high workload. No arrhythmias noted. No clinical angina present.
== END | disposition home or self-care (01) ==
LOC: CVS 09:35
PROVIDERS: PCP Family Medicine; Referring Provider Nurse Practitioner Family; Visit Provider Nurse Practitioner Family
DX: I25.10 Atherosclerotic heart disease of native coronary artery without angina pectoris (principal); I25.2 Old myocardial infarction; Z95.5 Presence of coronary angioplasty implant and graft; Q24.5 Malformation of coronary vessels; E78.2 Mixed hyperlipidemia
CPT/HCPCS: 93017

== ENCOUNTER 2024-03-30 16:00 | Outpatient (RCR) | payer OTHER, SELFPAY ==
--- NOTE | 2023-12-23 16:11 | HP.OTEVAL ---
Patient's Visit Information Visit Information Visit Information: EARL NAZARIO is a 38 year old M, referred to Occupational Therapy by MORENO CARBAJAL, with a diagnosis of left above arm apputation. Date of Evaluation: 12/18/23 Occupational Therapist: Lona Balbuena, KAITLIN/Ben, CHT Subjective Subjective: This 38 year old male was seen for OT eval with dx of left UE amputation. pts accident was 7 years ago. Pt initial prosthetic arm was given 3 years after his amputation. pt was seen with training with that arm in clinic but pt increased pain, neuroma and limited muscle motion struggles with use of his prosthesis from [email or web address]. Pt went for 2nd opinion and found a bionic prothesis- after a year of fitting and fabrication pt received his arm 1 week ago. pt arrives for bionic ed. with prothesis for training, use of left limb for daily tasks. pt is hopeful the use of the bionic limb will decrease residual stump pain/nerve pain and discomfort to a tolerable level. pt is hopeful he will use arm for daily tasks. Pain left stub: Current Pain Intensity: 4 Pain Intensity Range: 8 ROM ROM Comments: pt demo shoulder flexion of amputated arm to 90* ext to 30* pt demo with scapular winging Sensation Sensation Comments: pt hyper sensitive and has more issues with sleeping at night Quick DASH-Disab of Arm,Shoulder& Hand Quick DASH Score: 77.2725 Goals Goal:: pt will report a reduction in pain of stump of left UE by 50% by d/c Goal:: pt will demo the use of biontic arm /hand to tie shoes by d/c Goal:: pt will demo appropriate muscle response to imitate AI movement patterns for pt to demo functional ROM of bionic arm for 1 hour without demo muscle fatigue by d/c Goal:: pt will demo IND doffing of [id number] Coapt prosthetic including hand/or hook, complete calibration and initiate use to left prosthetic arm/hand to open, close, and lift items at waist, chest and knee levels by d.c pt will demo understanding of myoelectic technology and follow visual feedback to train movement/use (not to force muscle contractions grater than necessary for calibration) in 8 weeks. Rehabilitation General Assessment: pt arrives with prosthetic arm on with hook device in bag and holding hand of prophetic. pt arrives struggling with getting communication to hand- after clearing and calibration no success with hand- Using Coapt reji to assist in biofeedback communication to Myoelectric arm technology built to include Coapt pattern recognition learn users? unique and natural movements. Pt demo need for skilled OT services 2x week for 12 weeks to challenge pts remaining muscle structure, desensitize and ed pt on a low grade muscle contraction to initiate myoelectric arm technology. pt demo understanding and agrees to POC. Rehabilitation Potential: Good Anticipated Interventions Anticipated Interventions: Desensitization, Sensory Retraining, Modalities, Fine Motor Coord/Maldonado, ADL Training, Education re assistive Equipment, Education re Diagnosis, Caregiver Training and Home Program Other Interventions: use of prosthetic arm Visit Plan Frequency: 2-3x /Week Duration: 2 Months TEXT: Thank you for the opportunity to evaluate your patient. For Medicare and Medicare HMO plans, please review the plan of care and approve it. It will need to be FAXED BACK to us at [phone] for Medicare purposes. Please let me know if there are questions or concerns regarding this plan of care. Physician Signature: Date:
--- NOTE | 2024-06-08 13:36 | HP.OT.NRP ---
Patient Information Patient Information: EARL NAZARIO was seen in my office for initial evaluation on 12/18/23. The following Plan of Care was established for this patient: POC Established Initial Frequency: 2-3x /Week Initial Duration: 2 Months Plan: cont to increase pts ability and functional use of bionic arm Anticipated Interventions Anticipated Interventions: Desensitization, Sensory Retraining, Modalities, Fine Motor Coord/Maldonado, ADL Training, Education re assistive Equipment, Education re Diagnosis, Caregiver Training and Home Program Other Interventions: use of prosthetic arm Last Seen Last Seen: This patient was last seen in our office 03/30/24. Pertinent comments regarding their Occupational therapy will appear below: Pt was seen in OT to work with his bionic arm following hx of traumatic above elbow amputation. No further C9 approval for OT services has been received. Due to time lapse in services pt is d/c. At this point I will be discontinuing this patient from occupational therapy. I would be happy to see this patient again in the future if found appropriate by the physician. Thank you! Lona Balbuena, OTR/L, CHT
== END 2024-03-30 19:00 | disposition home or self-care (01) ==
LOC: OT 16:00
PROVIDERS: PCP Family Medicine
DX: S48.11 Complete traumatic amputation at level between shoulder and elbow (principal); F32.1 Major depressive disorder, single episode, moderate; F43.0 Acute stress reaction; T87.32 Neuroma of amputation stump, left upper extremity
CPT/HCPCS: 97166; 97530

== ENCOUNTER 2024-05-12 12:20 | Outpatient (CLI) | payer OTHER, SELFPAY ==
[2024-05-12 13:21] LABS: Amphetamine Urine VISTA NEGATIVE (<1000 ng/mL); Barbiturate Urine VISTA NEGATIVE (< 200 ng/mL); Benzodiazepine Urine VISTA NEGATIVE (< 200 ng/mL); Cocaine Urine VISTA NEGATIVE (< 300 ng/mL); Ecstacy Urine VISTA NEGATIVE (< 500 ng/mL); Methadone Urine VISTA NEGATIVE (< 300 ng/mL); PCP Urine VISTA NEGATIVE (< 25 ng/mL); THC Urine VISTA POSITIVE (< 50 ng/mL); Vista UDS pH Range 6
== END 2024-05-12 23:59 | disposition home or self-care (01) ==
PROVIDERS: PCP Family Medicine; Referring Provider Anesthesiology; Visit Provider Anesthesiology
DX: F48.9 Nonpsychotic mental disorder, unspecified (principal); G54.6 Phantom limb syndrome with pain; D36.10 Benign neoplasm of peripheral nerves and autonomic nervous system, unspecified
CPT/HCPCS: 80307

== ENCOUNTER 2024-09-22 11:00 | Outpatient (RCR) | payer OTHER, SELFPAY ==
--- NOTE | 2024-09-08 11:22 | HP.OTEVAL ---
Patient's Visit Information Visit Information Visit Information: EARL NAZARIO is a 39 year old M, referred to Occupational Therapy by MORENO CARBAJAL, with a diagnosis of traumatic left arm amputation. 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 Pt injury occurred 12/25/2016. pt has been working on adapting to using a mechanical arm - states frustration as he had had issues with batter, wiring and tears in the hand cover. Pt states he has also pinched his right hand with left hand unintentionally and could not open mechanical hand. pt states he feels he has consistently feel he can maneuver the elbow - but really would like to focus on seated bilateral hand tasks- pt did recently return to pain mtg- to help him with his painful neuroma- using pain patches- having trouble keeping them on due to sweat and where he has been able to wear them his shoulder strap will start rubbing the pain patch off. pt states his usual cinthia. of using heat is the best to decrease pain - pt states his muscle gun does not help as much any longer. 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 size object in less than 30 sec. as precursor to functional tasks of grasp for IADls/work tasks pt will demo the ability to hold object for 60 sec. as precursor to IADLs and work tasks pt will demo the ability to use bilateral hand skills to place objects together to simulate assembly use of prosthetic with functional tasks with home mtg. ie hold sweeper cord etc Goal:: pt will report increase jose armando of using bionic arm/hand for 6 hours with no increase in pain by d/c pt will demo increase in left shoulder and scapular strength 4+/5 by d/c pt will demo a increase in left shoulder flexion and abduction by 20* or greater to increase pts ind with selfcare by d/c Rehabilitation General Assessment: This 39 year old male has been seen in this facility in the past year. Therapy is focus on use of mechanical arm - this includes an elbow and fingers- use of devices in past 6 months has been challenging as he has had to send the sleeve and device back for repairs. pt demo increase strength in initiation of the motor movement and needs visual feedback to focus on a seated attempt to grasp an object. pt demo increase time to grasp object with his bionic hand. pt does need to stop what he is doing to adj arm or thumb part to grasp items. pt demo with deficits of left shoulder and scapula strength decreasing jose armando of wearing is bionic arm- pt demo with limited fluid grasp/ release of different size objects. pt demo need for further skilled OT services 2x week for 6 weeks to modify pt strength program,- decrease pain and work on biofeedback of using is bionic arm & hand. Pt demo understanding and agrees to POC. Rehabilitation Potential: Good Anticipated Interventions Anticipated Interventions: A/AAROM/PROM, Strengthening, Triggerpoint Release, Desensitization, Modalities, Orthoses, ADL Training, Education re assistive Equipment, Education re Diagnosis, Caregiver Training and Home Program Other Interventions: bionic arm /hand training Visit Plan Frequency: 2x /Week Duration: 4-6 Weeks TEXT: Thank you for the opportunity to evaluate your patient. For Medicare and Medicare HMO plans, please review the plan of care and approve it. It will need to be FAXED BACK to us at [phone] for Medicare purposes. Please let me know if there are questions or concerns regarding this plan of care. Physician Signature: Date:
--- NOTE | 2025-03-27 16:31 | HP.OT.NRP ---
Patient Information Patient Information: EARL NAZARIO was seen in my office for initial evaluation on 09/07/24. The following Plan of Care was established for this patient: POC Established Initial Frequency: 2x /Week Initial Duration: 4-6 Weeks Plan: Cont to challenge pt with functional use of left bionic hand and hook for helper hand with tasks Anticipated Interventions Anticipated Interventions: A/AAROM/PROM, Strengthening, Triggerpoint Release, Desensitization, Modalities, Orthoses, ADL Training, Education re assistive Equipment, Education re Diagnosis, Caregiver Training and Home Program Other Interventions: bionic arm /hand training Last Seen Last Seen: This patient was last seen in our office 09/07/15. Pertinent comments regarding their Occupational therapy will appear below: pt was seen for OT. Due insurance coverage pt has not received services and due to time lapse in care pt is d.c. At this point I will be discontinuing this patient from occupational therapy. I would be happy to see this patient again in the future if found appropriate by the physician. Thank you! Lona Balbuena, OTR/L, CHT
== END 2024-09-22 19:00 | disposition home or self-care (01) ==
LOC: OT 11:00
PROVIDERS: PCP Family Medicine
DX: S48.11 Complete traumatic amputation at level between shoulder and elbow (principal); T87.32 Neuroma of amputation stump, left upper extremity
CPT/HCPCS: 97166; 97530

== ENCOUNTER → 2024-11-03 | Outpatient (CLI) | payer OTHER, SELFPAY ==
[2024-11-03 15:29] LABS: Hematocrit 51.6 % (40-54); Hemoglobin 17.5 g/dL (13.0-16.5); Mean Corp Hgb Conc 33.9 g/dL (32-36); Mean Corpuscular Hgb 28.8 pg (27.0-32.0); Mean Corpuscular Volume 84.9 fL (80-94); Mean Platelet Vol. 11.6 fl (6.2-12.0); Platelet Count 277 K/mm3 (150-450); RBC Distribution Width CV 12.8 % (11.6-14.6); RBC Distribution Width SD 39.4 fl (35.1-43.9); Red Blood Count 6.08 M/mm3 (4.6-6.2); White Blood Count 11.2 K/mm3 (4.4-11.0)
[2024-11-03 15:57] LABS: ALB/GLOB Ratio 1.3 RATIO (0.9-2.4); AST(SGOT) 30 U/L (15-37); Alanine Aminotransfer ALT/SGPT 57 U/L (16-61); Albumin, Serum 4.3 g/dL (3.2-5.0); Alkaline Phosphatase 128 U/L (45-117); Anion Gap 10 (5-15); BUN 6 mg/dL (7-18); BUN/Creat Ratio 7.8 RATIO (10-20); Calcium,Total 9.5 mg/dL (8.5-10.1); Chloride 103 mmol/L (98-107); Cholesterol 103 mg/dL (200); Creatinine, Serum 0.77 mg/dL (0.70-1.30); EST Glomerular Filtration Rate 119 mL/min (>60); Est Glom Filt Rate - Afr Amer 144 mL/min (>60); Globulin 3.2 g/dL (2.2-4.2); Glucose 179 mg/dL (74-106); High Density Lipoprotein 31 mg/dL; Potassium 4.2 mmol/L (3.5-5.1); Protein, Total 7.5 g/dL (6.4-8.2); Sodium Level 137 mmol/L (136-145); Triglycerides 119 mg/dL; Very Low Density Lipoprotein 24 mg/dL (5-40)
[2024-11-07 08:50] LABS: T4 Free Direct 1.19 ng/dL (0.76-1.46)
== END | disposition home or self-care (01) ==
LOC: MFPLAB 12:27
PROVIDERS: PCP Family Medicine; Referring Provider Family Medicine; Visit Provider Family Medicine
DX: E11.9 Type 2 diabetes mellitus without complications (principal); R53.83 Other fatigue
CPT/HCPCS: 36415; 80053; 80061; 84439; 84443; 85027

== ENCOUNTER 2025-06-19 17:16 | Outpatient (RCR) | payer OTHER, SELFPAY ==
--- NOTE | 2025-06-20 15:30 | HP.OTFCE.D ---
FCE D/C Summary Discharge text: EARL NAZARIO was seen for a one time visit for an FCE on 06/19/25 and is discharged.
--- NOTE | 2025-06-20 15:33 | HP.FCE ---
Task Lift Floor (Occasional 1-33% of Day): 45# Floor (Frequent 34-66% of Day): 22# Floor (Constant 67-100% of Day): NA Floor PDL: Light-Medium Knee (Occasional 1-33% of Day): 45# Knee (Frequent 34-66% of Day): 22# Knee (Constant 67-100% of Day): NA Knee PDL: Light-Medium Waist (Occasional 1-33% of Day): 45# Waist (Frequent 34-66% of Day): 22# Waist (Constant 67-100% of Day): NA Waist PDL: Light-Medium Shoulder (Occasional 1-33% of Day): 15# Shoulder (Frequent 34-66% of Day): 8# Shoulder (Constant 67-100% of Day): NA Shoulder PDL: Sedentary-Light Overhead (Occasional 1-33% of Day): 15# Overhead (Frequent 34-66% of Day): 8# Overhead (Constant 67-100% of Day): NA Overhead PDL: Sedentary-Light Comments: pt demo right UE lift of 45# maximally for a Light medium physical demand level for lift of one UE from floor-knee and waist levels. pt demo right UE lift of 15# maximal for a Sedentary light physical demand level for lifting at shoulder and overhead levels. Work Activity/Posture Bending: Frequent Ability (34-66% of day) Squatting: Frequent Ability (34-66% of day) Kneeling: Frequent Ability (34-66% of day) Reaching out: Frequent Ability (34-66% of day) Comments: with prosthesis Reaching up: Frequent Ability (34-66% of day) Comments: with prosthesis Sitting: Constant Ability (67-100% of day) Walking: Constant Ability (67-100% of day) Standing: Constant Ability (67-100% of day) Reference Reference: Duration Sedentary Sedentary Light Light Light Medium Medium Medium Heavy Very Heavy Heavy Occasional (0-33% of day) Frequent (34-66% of day) Constant (67-100% of day) 10 # Negligible Negligible 15 # 8 # Negligible 20 # 10# Negli. 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 pt has since received a initial manual left UE prosthetic 3 years after his amputation. Due to limited about of arm and tissue left his manual prosthetic for assistive arm. Pt received a bionic arm spring of 2023. Pt has been through extensive training with his bionic arm to use with daily skills. 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 Pt currently drives his personal vehicle without difficulty. Pts dtr has played travel softball all over the [place] and he drives her to the [employer]. Diagnoses Diagnoses: Left Above elbow amputation Symptoms Symptoms: nerve pain in stump left above elbow amputation Pain Pain: pain left UE 6-7/10 more at end of stump pt states he mtg. his pain with compression/heat/ showers and adriel wrap. 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 pt could not lift over 50# so he was unable to return to driving for this [employer]ric[employer] company. 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 Behavioral Behavioral: pt motivated to return to work- positive attitude. ADLS ADLS: pt lives with his and 2 dtrs. and son (autistic) works from home. he is modified IND with ADLs and IADLs pt will use riding mower and at times push mower self propelled with his ilsa prosthesis - instead of using a weed eater he uses weed spray back pack leaf blower- pt states he can mtg these tasks with accommodations. pt states he has figured out how to live without his arm and use his prosthetic devices for assisting him with daily tasks. Physical Examination ROM: pt demo ROM of right UE WNL. left UE limited to shoulder flexion 120* pt is a left above arm amputation pt demo full elbow ROM with both prosthesis pt demo with use of both prosthetics a grasp and release ability Strength: fet 2 peak force shoulder flexion right 27# left 24# shoulder ext right 32* left 27# biceps right 31# left (NT hydraulic bionic arm) triceps right 28# left (NT hydraulic bionic arm) Hip flexion right 30# left 28# hamstring right 38# left 35# quadriceps right 35# left 33# Right Cyber Legal Advisor Strength Average: 110.00 Right Cyber Legal Advisor Strength Percentile: 38% Right Lateral Pinch Average: 16.66 Right Lateral Pinch Percentile: 10% Right Tripod Pinch Average: 15.33 Right Tripod Pinch Percentile: 10% Comments: right UE tested only for investigation lieutenant and pinch as left is bionic hand/arm Sensation: right Normal sensation ( left stump hyper sensitivity) right hand denies any deficits Fine Motor: right is WNL left gross movement of open close of his bionic arm- ( driving to initiate turn signal with whole arm movement) vs fingers Balance: no difficulty with balance pt demo normal balance Non Material Handling Activities Bending: pt demo the ability to bend forward 3/3x and 10/10x and 10/10x rapidly pts heart rate 110 pt can bend forward on frequent ability Squatting: pt demo the ability to squat 3/3x, 10/10, and 10/10x rapidly heart rate 112 following heart rate 146 pt can squat on frequent ability Kneeling: pt demo the ability to kneel 3/3x and 10/10x/ and 10x rapidly heart rate 112 pt can kneel on frequent ability Reaching out/up: pt conor the ability to reach out 3/3x 10/10 and 10/10x rapidly 102 hear rate 96* pt demo the ability to reach up 3/3x and 10/10x and 10/10x rapidly pt demo good control of left UE with prosthetic on. pt can reach out/up on frequent ability with both UE Walking: pt demo fast reciprocal gait pattern throughout dept. pt can ambulate on constant ability Standing: pt demo the ability to stand for 15 min with no apparent discomfort. pt does shift body weight- pt can stand on a constant ability Sitting: pt demo sitting for 60 min with no apparent or expressed discomfort pt can sit on constant ability Climbing Stairs: pt demo IND ascending and descending 10 steps with a reciprocal step pattern. pt demo safe stair climbing Dynamic Occasional Lifting Capacity Floor Lift: right UE 45# maximally from this level with BUE UE and prosthetic 15# maximally from this level Knee Lift: right UE 45# maximally from this level with BUE UE and prosthetic 15# maximally from this level Waist Lift: right UE 45# maximally from this level with BUE UE and prosthetic 15# maximally from this level Shoulder Lift: right UE 45# maximally from this level with BUE UE and prosthetic 15# maximally from this level Overhead Lift: pt demo the ability to lift 15# maximally with right UE pt demo ability to lift 15# maximally with bilateral UE from this level Carrying: pt demo the ability to carry 15# with prosthetic 45# for 5 feet with right UE only Comments: pt demo good control of a bionic UE throughout the assessment. 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 Locations: [facility] and [place].
== END 2025-06-19 19:00 | disposition home or self-care (01) ==
LOC: OT 17:16
PROVIDERS: PCP Family Medicine
DX: S48.11 Complete traumatic amputation at level between shoulder and elbow (principal); F32.1 Major depressive disorder, single episode, moderate; F43.0 Acute stress reaction; T87.32 Neuroma of amputation stump, left upper extremity
CPT/HCPCS: 97750